=== PATIENT | male | born 1935 | race Caucasian/White ===

== ENCOUNTER 2016-06-29 14:52 | Inpatient (IN) | payer OTHER ==
[~2016-06-29] VITALS: Ht 182.9 cm; Wt 72.0 kg
[~2016-06-29 14:52] MED LIST: AMBIEN10 MG PO; AMOX TR-K CLV1 EAC3 PO; AUGMENTIN875 MG PO; CENTRUM SILV1 TABLE1 PO; COUMADIN,JANTOVE5 MG PO; COUMADIN2.5 MG PO; DIGITEK125 MC2 PO; DIGOXIN250 MCG PO; FISH OIL 1,0001 EAC7 PO; FOLIC ACID0.4 MG PO; FUROSEMIDE40 MG PO; LANOXIN,DIGIT0.25 MG PO; LANOXIN250 MCG PO; LEVAQUIN750 MG PO; LISINOPRIL5 MG PO; LOPRESSOR25 MG PO; Omega III EPA + DHA PO; PROTONIX40 MG PO; TENORMIN50 MG PO; Tenormin PO; VITAMIN D5000 INTUN PO; WARFARIN SODIU2.5 MG PO; WARFARIN SODIUM5 MG PO; ZESTRIL,PRINIVI10 M1 PO; ZOCOR20 MG PO; Zocor PO
[2016-06-29 15:59] LABS: HEMATOCRIT 31.3 % (38.0-50.0); MCH 32.7 PG (29.0-34.0); MCHC 33.5 G/DL (30.0-36.0); MCV 97.5 FL (86-99); MEAN PLAT.VOLUME 9.7 uM^3 (9.0-12.4); PLATELET COUNT 249 K/uL (156-360); RBC DIS.WIDTH-CV 14.7 % (11.8-14.6); RED BLOOD COUNT 3.21 M/uL (4.00-5.50); WHITE BLOOD COUNT 6.6 K/uL (4.1-10.2)
[2016-06-29 16:11] LABS: CHLORIDE 98 mEq/L (99-109); POTASSIUM 5.3 mEq/L (3.7-5.4); SODIUM 130 mEq/L (136-147)
[2016-06-29 16:12] LABS: GLUCOSE 106 mg/dL (70-99)
[2016-06-29 16:14] LABS: ANION GAP 11 MEQ/L (2-14)
[2016-06-29 16:16] LABS: GFR ESTIMATE (CALCULATED) 34 mL/min/
[2016-06-29 16:17] LABS: UREA NITROGEN (BUN) 51 mg/dL (9-23)
[2016-06-29 16:24] LABS: TROP-I INTERPRETATION NEGATIVE; TROPONIN-I 0.08 ng/mL (0.0-0.30)
[2016-06-29] MEDS ORDERED: LOPRESSOR25 MG PO (17:34)
[2016-06-29] MEDS ORDERED: FUROSEMIDE40 MG PO (17:35)
[2016-06-29] MEDS ORDERED: LISINOPRIL2.5 MG PO (17:35)
[2016-06-29] MEDS ORDERED: CENTRUM SILVER1 EAC3 PO (17:36)
[2016-06-29] MEDS ORDERED: PROAIR HFA8.5 GM IH (17:37)
[2016-06-29] MEDS ORDERED: ADVAIR 250/501 DISK IH (17:37)
[2016-06-29 22:49] LABS: PTT 46.3 (25-32)
[2016-06-29 22:55] LABS: INTER. NORMALIZED RATIO 4.6; PROTHROMBIN TIME 49.3 (9.2-11.2)
[2016-06-29 23:20] VITALS: BP 101/65
[2016-06-30 04:00] VITALS: BP 96/60
[2016-06-30 08:02] LABS: INTER. NORMALIZED RATIO 4.2; PROTHROMBIN TIME 44.9 (9.2-11.2)
[2016-06-30 08:09] VITALS: BP 109/60
[2016-06-30 09:59] LABS: HEMATOCRIT 27.7 % (38.0-50.0); MCH 32.5 PG (29.0-34.0); MCHC 34.3 G/DL (30.0-36.0); MCV 94.9 FL (86-99); MEAN PLAT.VOLUME 10.5 uM^3 (9.0-12.4); PLATELET COUNT 236 K/uL (156-360); RBC DIS.WIDTH-CV 14.8 % (11.8-14.6); RBC DIS.WIDTH-SD 51.6 % (39-53); RED BLOOD COUNT 2.92 M/uL (4.00-5.50); WHITE BLOOD COUNT 6.2 K/uL (4.1-10.2)
[2016-06-30 10:11] LABS: ANION GAP 10 MEQ/L (2-14); CHLORIDE 98 MEQ/L (99-109); GFR ESTIMATE (CALCULATED) 34 mL/min/; GLUCOSE 85 mg/dL (70-99); SAMPLE HEMOLYSIS CHECK 0; SAMPLE ICTERIC CHECK 0; SAMPLE LIPEMIA CHECK 0; SODIUM 129 MEQ/L (136-147); UREA NITROGEN (BUN) 54 mg/dL (9-23)
[2016-06-30 12:00] VITALS: BP 96/62
[2016-06-30 15:29] LABS: ADD MIUA? NO; BILIRUBIN NEGATIVE; BLOOD NEGATIVE; COLOR YELLOW ((YELLOW)); GLUCOSE (STRIP) NEGATIVE; KETONES NEGATIVE; LEUKOCYTES NEGATIVE; NITRITE NEGATIVE; PROTEIN (STRIP) NEGATIVE; SPECIFIC GRAVITY 1.009 (1.000-1.030); UROBILINOGEN 0.2 MG/DL (0.2-1.0)
[2016-06-30 16:22] VITALS: BP 101/64
[2016-06-30 20:00] VITALS: BP 107/65
[2016-07-01] VITALS: BP 86/45
[2016-07-01 04:00] VITALS: BP 95/63
[2016-07-01 07:14] LABS: EOSINOPHIL (%) 2.4 % (0-5); EOSINOPHIL COUNT 0.2 K/uL (0-0.3); HEMATOCRIT 28.3 % (38.0-50.0); IMMATURE GRANULOCYTE (%) 0.4 % (0.0-0.7); LYMPHOCYTE COUNT 0.9 K/uL (1.0-2.8); MCH 32.1 PG (29.0-34.0); MCHC 33.9 G/DL (30.0-36.0); MCV 94.6 FL (86-99); MEAN PLAT.VOLUME 10.2 uM^3 (9.0-12.4); MONOCYTE (%) 9.9 % (3-12); MONOCYTE COUNT 0.7 K/uL (0-0.8); NEUTROPHIL (%) 73.4 % (45-76); PLATELET COUNT 259 K/uL (156-360); RBC DIS.WIDTH-CV 14.8 % (11.8-14.6); RED BLOOD COUNT 2.99 M/uL (4.00-5.50); WHITE BLOOD COUNT 6.8 K/uL (4.1-10.2)
[2016-07-01 07:23] LABS: PROTHROMBIN TIME 48.2 (9.2-11.2)
[2016-07-01 07:35] LABS: HEM NON-PRINT 2 NO CLOT; INTER. NORMALIZED RATIO 4.5
[2016-07-01 07:41] LABS: ANION GAP 8 MEQ/L (2-14); CHLORIDE 97 MEQ/L (99-109); GFR ESTIMATE (CALCULATED) 32 mL/min/; GLUCOSE 91 mg/dL (70-99); POTASSIUM 4.8 MEQ/L (3.7-5.4); SAMPLE HEMOLYSIS CHECK 0; SAMPLE ICTERIC CHECK 0; SAMPLE LIPEMIA CHECK 0; SODIUM 128 MEQ/L (136-147); UREA NITROGEN (BUN) 54 mg/dL (9-23)
[2016-07-01 07:50] VITALS: BP 99/67
[2016-07-01 11:55] VITALS: BP 111/72
[2016-07-01 16:00] VITALS: BP 109/69
[2016-07-01 20:00] VITALS: BP 115/67
[2016-07-02] VITALS (12 sets, daily range): BP systolic 86–103; BP diastolic 53–71
[2016-07-02 08:31] LABS: ANION GAP 9 MEQ/L (2-14); CHLORIDE 96 MEQ/L (99-109); GFR ESTIMATE (CALCULATED) 36 mL/min/; GLUCOSE 87 mg/dL (70-99); POTASSIUM 4.9 MEQ/L (3.7-5.4); SAMPLE HEMOLYSIS CHECK 0; SAMPLE ICTERIC CHECK 0; SAMPLE LIPEMIA CHECK 0; SODIUM 128 MEQ/L (136-147); UREA NITROGEN (BUN) 54 mg/dL (9-23)
[2016-07-02 09:23] LABS: INTER. NORMALIZED RATIO 4.7; PROTHROMBIN TIME 49.9 (9.2-11.2)
[2016-07-02 15:58] LABS: INTER. NORMALIZED RATIO 2.8; PROTHROMBIN TIME 29.7 (9.2-11.2)
[2016-07-03] VITALS (10 sets, daily range): BP systolic 104–134; BP diastolic 62–82
[2016-07-03 06:59] LABS: INTER. NORMALIZED RATIO 2.3; PROTHROMBIN TIME 23.7 (9.2-11.2)
[2016-07-03 12:17] LABS: INTER. NORMALIZED RATIO 2.3; PROTHROMBIN TIME 23.5 (9.2-11.2)
[2016-07-04] VITALS (13 sets, daily range): BP systolic 103–119; BP diastolic 58–77
[2016-07-04 06:16] LABS: INTER. NORMALIZED RATIO 2.3
[2016-07-04 13:38] LABS: INTER. NORMALIZED RATIO 2.1; PROTHROMBIN TIME 21.6 (9.2-11.2)
[2016-07-05] VITALS: BP 119/68
[2016-07-05 04:00] VITALS: BP 112/62
[2016-07-05 06:47] LABS: INTER. NORMALIZED RATIO 1.9; PROTHROMBIN TIME 20.2 (9.2-11.2)
[2016-07-05 07:21] LABS: ANION GAP 22 MEQ/L (2-14); CHLORIDE 92 MEQ/L (99-109); GFR ESTIMATE (CALCULATED) 41 mL/min/; GLUCOSE 102 mg/dL (70-99); POTASSIUM 4.3 MEQ/L (3.7-5.4); SAMPLE HEMOLYSIS CHECK 0; SAMPLE ICTERIC CHECK 0; SAMPLE LIPEMIA CHECK 0; UREA NITROGEN (BUN) 57 mg/dL (9-23)
[2016-07-05 07:24] LABS: SODIUM 137 MEQ/L (136-147)
[2016-07-05 07:29] VITALS: BP 113/68
[2016-07-05 11:47] VITALS: BP 118/77
[2016-07-05 19:34] VITALS: BP 99/67
[2016-07-05 23:45] VITALS: BP 110/70
[2016-07-06 04:09] VITALS: BP 104/58
[2016-07-06 05:33] LABS: INTER. NORMALIZED RATIO 2.1; PROTHROMBIN TIME 22.2 (9.2-11.2)
[2016-07-06 06:05] LABS: ANION GAP 9 MEQ/L (2-14); CHLORIDE 94 MEQ/L (99-109); GFR ESTIMATE (CALCULATED) 41 mL/min/; GLUCOSE 100 mg/dL (70-99); POTASSIUM 4.4 MEQ/L (3.7-5.4); SAMPLE HEMOLYSIS CHECK 0; SAMPLE ICTERIC CHECK 0; SAMPLE LIPEMIA CHECK 0; SODIUM 130 MEQ/L (136-147); UREA NITROGEN (BUN) 60 mg/dL (9-23)
[2016-07-06 07:24] VITALS: BP 99/58
[2016-07-06 12:00] VITALS: BP 108/64
[2016-07-06 15:58] VITALS: BP 109/73
[2016-07-06 20:07] VITALS: BP 107/69
[2016-07-07 00:33] VITALS: BP 100/65
[2016-07-07 04:03] VITALS: BP 106/61
[2016-07-07 07:22] LABS: EOSINOPHIL (%) 3.5 % (0-5); EOSINOPHIL COUNT 0.3 K/uL (0-0.3); IMMATURE GRANULOCYTE (%) 0.3 % (0.0-0.7); LYMPHOCYTE COUNT 0.8 K/uL (1.0-2.8); MCH 32.3 PG (29.0-34.0); MCHC 33.9 G/DL (30.0-36.0); MCV 95.2 FL (86-99); MEAN PLAT.VOLUME 9.9 uM^3 (9.0-12.4); MONOCYTE (%) 10.4 % (3-12); MONOCYTE COUNT 0.8 K/uL (0-0.8); NEUTROPHIL COUNT 5.3 K/uL (1.8-6.4); PLATELET COUNT 319 K/uL (156-360); RBC DIS.WIDTH-CV 14.6 % (11.8-14.6); RBC DIS.WIDTH-SD 50.8 % (39-53); RED BLOOD COUNT 2.94 M/uL (4.00-5.50); WHITE BLOOD COUNT 7.2 K/uL (4.1-10.2)
[2016-07-07 07:34] VITALS: BP 102/62
[2016-07-07 07:37] LABS: ANION GAP 10 MEQ/L (2-14); CHLORIDE 93 MEQ/L (99-109); GFR ESTIMATE (CALCULATED) 41 mL/min/; GLUCOSE 91 mg/dL (70-99); POTASSIUM 4.6 MEQ/L (3.7-5.4); SAMPLE HEMOLYSIS CHECK 0; SAMPLE ICTERIC CHECK 0; SAMPLE LIPEMIA CHECK 0; SODIUM 130 MEQ/L (136-147); UREA NITROGEN (BUN) 60 mg/dL (9-23)
[2016-07-07 07:48] LABS: INTER. NORMALIZED RATIO 2.2; PROTHROMBIN TIME 22.7 (9.2-11.2)
[2016-07-07 11:30] VITALS: BP 108/59
[2016-07-07 15:14] VITALS: BP 146/80
[2016-07-07 20:16] VITALS: BP 106/67
[2016-07-08] VITALS (7 sets, daily range): BP systolic 102–118; BP diastolic 55–69
[2016-07-08 06:49] LABS: INTER. NORMALIZED RATIO 2.5; PROTHROMBIN TIME 26.1 (9.2-11.2)
[2016-07-09] VITALS (8 sets, daily range): BP systolic 93–123; BP diastolic 56–76
[2016-07-09 07:01] LABS: EOSINOPHIL (%) 3.1 % (0-5); EOSINOPHIL COUNT 0.2 K/uL (0-0.3); HEMATOCRIT 27.5 % (38.0-50.0); IMMATURE GRANULOCYTE (%) 0.4 % (0.0-0.7); MCH 32.7 PG (29.0-34.0); MCHC 33.8 G/DL (30.0-36.0); MCV 96.8 FL (86-99); MEAN PLAT.VOLUME 9.9 uM^3 (9.0-12.4); MONOCYTE (%) 9.5 % (3-12); MONOCYTE COUNT 0.7 K/uL (0-0.8); NEUTROPHIL (%) 73.2 % (45-76); NEUTROPHIL COUNT 5.2 K/uL (1.8-6.4); PLATELET COUNT 303 K/uL (156-360); RBC DIS.WIDTH-CV 14.5 % (11.8-14.6); RBC DIS.WIDTH-SD 51.4 % (39-53); RED BLOOD COUNT 2.84 M/uL (4.00-5.50)
[2016-07-09 07:06] LABS: INTER. NORMALIZED RATIO 2.7; PROTHROMBIN TIME 28.1 (9.2-11.2)
[2016-07-09 07:21] LABS: ANION GAP 9 MEQ/L (2-14); CHLORIDE 93 MEQ/L (99-109); GFR ESTIMATE (CALCULATED) 39 mL/min/; GLUCOSE 86 mg/dL (70-99); POTASSIUM 4.4 MEQ/L (3.7-5.4); SAMPLE HEMOLYSIS CHECK 0; SAMPLE ICTERIC CHECK 0; SAMPLE LIPEMIA CHECK 0; SODIUM 131 MEQ/L (136-147); UREA NITROGEN (BUN) 61 mg/dL (9-23)
[2016-07-10 05:00] VITALS: BP 105/65
[2016-07-10 07:31] VITALS: BP 104/67
[2016-07-10 07:49] LABS: INTER. NORMALIZED RATIO 2.9; PROTHROMBIN TIME 30.7 (9.2-11.2)
[2016-07-10 11:23] VITALS: BP 107/71
[2016-07-10 16:00] VITALS: BP 118/78
[2016-07-10 20:00] VITALS: BP 109/72
[2016-07-11] VITALS: BP 101/59
[2016-07-11 03:45] VITALS: BP 101/60
[2016-07-11 07:06] LABS: INTER. NORMALIZED RATIO 3.3; PROTHROMBIN TIME 34.9 (9.2-11.2)
[2016-07-11 08:00] VITALS: BP 96/62
[2016-07-11 08:57] VITALS: BP 119/62
[2016-07-11 11:59] VITALS: BP 126/84
[2016-07-11 16:00] VITALS: BP 116/72
[2016-07-12] VITALS: BP 98/69
[2016-07-12 04:00] VITALS: BP 125/78
[2016-07-12 06:57] LABS: EOSINOPHIL (%) 2.5 % (0-5); EOSINOPHIL COUNT 0.2 K/uL (0-0.3); HEMATOCRIT 28.8 % (38.0-50.0); IMMATURE GRANULOCYTE (%) 0.5 % (0.0-0.7); MCH 32.4 PG (29.0-34.0); MCHC 33.7 G/DL (30.0-36.0); MCV 96.3 FL (86-99); MEAN PLAT.VOLUME 9.7 uM^3 (9.0-12.4); MONOCYTE (%) 11.2 % (3-12); MONOCYTE COUNT 0.9 K/uL (0-0.8); NEUTROPHIL (%) 72.3 % (45-76); NEUTROPHIL COUNT 5.5 K/uL (1.8-6.4); PLATELET COUNT 285 K/uL (156-360); RBC DIS.WIDTH-CV 14.4 % (11.8-14.6); RBC DIS.WIDTH-SD 50.9 % (39-53); RED BLOOD COUNT 2.99 M/uL (4.00-5.50); WHITE BLOOD COUNT 7.7 K/uL (4.1-10.2)
[2016-07-12 07:11] LABS: INTER. NORMALIZED RATIO 3.6; PROTHROMBIN TIME 37.8 (9.2-11.2)
[2016-07-12 07:36] LABS: ANION GAP 10 MEQ/L (2-14); CHLORIDE 91 MEQ/L (99-109); GFR ESTIMATE (CALCULATED) 41 mL/min/; GLUCOSE 101 mg/dL (70-99); POTASSIUM 4.4 MEQ/L (3.7-5.4); SAMPLE HEMOLYSIS CHECK 0; SAMPLE ICTERIC CHECK 0; SAMPLE LIPEMIA CHECK 0; SODIUM 131 MEQ/L (136-147); UREA NITROGEN (BUN) 59 mg/dL (9-23)
[2016-07-12 07:40] VITALS: BP 105/67
[2016-07-12 11:31] VITALS: BP 104/72
[2016-07-12] MEDS ORDERED: TYLENOL REGULA325 MG PO (14:16)
[2016-07-12] MEDS ORDERED: SPIRONOLACTONE25 MG PO (14:25)
[2016-07-12] MEDS ORDERED: DIGOXIN250 MCG PO (14:25)
[2016-07-12] MEDS ORDERED: LASIX40 MG PO ×2 (14:25→14:40)
[2016-07-12] MEDS ORDERED: LOVENOX80 MG/0.8 SC (14:27)
[2016-07-12 15:19] VITALS: BP 112/69
[2016-07-20] MEDS ORDERED: DULERA 100 MCG/13 GM IH (12:49)
[2016-07-20] MEDS ORDERED: ATORVASTATIN CA10 MG PO (12:49)
[2016-07-20] MEDS ORDERED: OMEPRAZOLE40 M1 PO (12:50)
[2016-07-20] MEDS ORDERED: ZOLPIDEM TARTRAT5 MG PO (12:51)
== END 2016-07-12 16:34 | DRG 187 ==
LOC: EME 14:52 → 5SOUTH 21:24 → EDOF 21:24 → 5SOUTH 23:16
PROVIDERS: Hospitalist; Internal Medicine; Internal Medicine Nephrology; Internal Medicine Pulmonary Disease; Nurse Practitioner Adult Health; Nurse Practitioner Family; Thoracic Surgery (Cardiothoracic Vascular Surgery)
PROC: 30233K1 Transfusion of Nonautologous Frozen Plasma into Peripheral Vein, Percutaneous Approach (ICD-10-PCS; principal; 2016-07-02)
PROC: 0W993ZZ Drainage of Right Pleural Cavity, Percutaneous Approach (ICD-10-PCS; 2016-07-05)
DX: J90 Pleural effusion, not elsewhere classified (principal); J98.11 Atelectasis; E22.2 Syndrome of inappropriate secretion of antidiuretic hormone; I50.22 Chronic systolic (congestive) heart failure; N17.9 Acute kidney failure, unspecified; I42.0 Dilated cardiomyopathy; K21.9 Gastro-esophageal reflux disease without esophagitis; E87.70 Fluid overload, unspecified; R60.9 Edema, unspecified; N28.1 Cyst of kidney, acquired; I48.2 Chronic atrial fibrillation; I49.5 Sick sinus syndrome; F32.9 Major depressive disorder, single episode, unspecified; D64.9 Anemia, unspecified; N40.0 Benign prostatic hyperplasia without lower urinary tract symptoms; I12.9 Hypertensive chronic kidney disease with stage 1 through stage 4 chronic kidney disease, or unspecified chronic kidney disease; E78.5 Hyperlipidemia, unspecified; I51.7 Cardiomegaly; R06.02 Shortness of breath; N18.3 Chronic kidney disease, stage 3 (moderate); Z95.0 Presence of cardiac pacemaker; Z85.038 Personal history of other malignant neoplasm of large intestine; Z95.2 Presence of prosthetic heart valve; Z88.2 Allergy status to sulfonamides; Z79.01 Long term (current) use of anticoagulants
CPT/HCPCS: 71010; 71020; 71030; 71250; 76770; 80048; 80162; 81003; 82533 91; 83880; 83930; 83935; 84300; 84443; 84484; 85025; 85027; 85610; 85730; 86850; 86900; 86901; 93005; 94640; 94640 76; 94760; 94799; 97530 GO; 97530 GP; 99281; 99285; J1940; P9017

== ENCOUNTER 2016-07-21 12:06 | Day surgery (SDC) | payer OTHER ==
[~2016-07-21] VITALS: Ht 182.9 cm; Wt 68.5 kg
[~2016-07-21 12:06] MED LIST changes: +ADVAIR 250/501 DISK IH; +ATORVASTATIN CA10 MG PO; +CENTRUM SILVER1 EAC3 PO; +DULERA 100 MCG/13 GM IH; +LASIX40 MG PO; +LISINOPRIL2.5 MG PO; +LOVENOX80 MG/0.8 SC; +OMEPRAZOLE40 M1 PO; +PROAIR HFA8.5 GM IH; +SPIRONOLACTONE25 MG PO; +TYLENOL REGULA325 MG PO; +ZOLPIDEM TARTRAT5 MG PO
[2016-07-21 12:47] VITALS: BP 109/69
[2016-07-21] MEDS ORDERED: COUMADIN1 MG PO (12:47)
[2016-07-21 13:18] LABS: EOSINOPHIL (%) 2.2 % (0-5); EOSINOPHIL COUNT 0.2 K/uL (0-0.3); HEMATOCRIT 29.3 % (38.0-50.0); IMMATURE GRANULOCYTE (%) 0.1 % (0.0-0.7); MCH 32.3 PG (29.0-34.0); MCHC 34.1 G/DL (30.0-36.0); MCV 94.5 FL (86-99); MEAN PLAT.VOLUME 9.6 uM^3 (9.0-12.4); MONOCYTE (%) 7.5 % (3-12); MONOCYTE COUNT 0.5 K/uL (0-0.8); NEUTROPHIL (%) 75.6 % (45-76); NEUTROPHIL COUNT 5.5 K/uL (1.8-6.4); PLATELET COUNT 288 K/uL (156-360); RBC DIS.WIDTH-CV 14.9 % (11.8-14.6); WHITE BLOOD COUNT 7.2 K/uL (4.1-10.2)
[2016-07-21 13:23] LABS: CHLORIDE 96 mEq/L (99-109); POTASSIUM 4.4 mEq/L (3.7-5.4); SODIUM 133 mEq/L (136-147)
[2016-07-21 13:25] LABS: GLUCOSE 90 mg/dL (70-99)
[2016-07-21 13:26] LABS: ANION GAP 13 MEQ/L (2-14)
[2016-07-21 13:27] LABS: TOTAL BILIRUBIN 1.7 mg/dL (0.0-1.0)
[2016-07-21 13:28] LABS: ALKALINE PHOSPHATASE 247 IU/L (3-129)
[2016-07-21 13:29] LABS: GFR ESTIMATE (CALCULATED) 44 mL/min/
[2016-07-21 13:30] LABS: UREA NITROGEN (BUN) 41 mg/dL (9-23)
[2016-07-21 13:52] LABS: METH RESISTANT S AUREUS PCR NEGATIVE (NEGATIVE); PROBE CHECK PASS; SPECIMEN PROCESSING CONTROL PASS
[2016-07-21 16:40] VITALS: BP 113/65
[2016-07-21 17:50] VITALS: BP 101/68
== END 2016-07-21 18:15 ==
LOC: SDC 12:06
PROVIDERS: Thoracic Surgery (Cardiothoracic Vascular Surgery)
PROC: 0W9930Z Drainage of Right Pleural Cavity with Drainage Device, Percutaneous Approach (ICD-10-PCS; principal; 2016-07-21)
DX: J90 Pleural effusion, not elsewhere classified (principal); I10 Essential (primary) hypertension; Z95.0 Presence of cardiac pacemaker; Z85.038 Personal history of other malignant neoplasm of large intestine; Z95.2 Presence of prosthetic heart valve; R06.02 Shortness of breath
CPT/HCPCS: 71010; 80053; 85025; 85610; 87641; C1729; J0690; J1650; J2250; J3010

== ENCOUNTER 2016-08-19 18:33 | Inpatient (IN) | payer OTHER ==
[~2016-08-19] VITALS: Ht 182.9 cm; Wt 67.4 kg
[~2016-08-19 18:33] MED LIST changes: +COUMADIN1 MG PO
[2016-08-19 20:13] LABS: HEMATOCRIT 30.2 % (38.0-50.0); MCH 31.5 PG (29.0-34.0); MCHC 33.4 G/DL (30.0-36.0); MCV 94.1 FL (86-99); MEAN PLAT.VOLUME 9.9 uM^3 (9.0-12.4); PLATELET COUNT 270 K/uL (156-360); RBC DIS.WIDTH-CV 16.3 % (11.8-14.6); RBC DIS.WIDTH-SD 53.5 % (39-53); RED BLOOD COUNT 3.21 M/uL (4.00-5.50); WHITE BLOOD COUNT 7.1 K/uL (4.1-10.2)
[2016-08-19 20:31] LABS: CHLORIDE 100 mEq/L (99-109); SODIUM 132 mEq/L (136-147)
[2016-08-19 20:34] LABS: ANION GAP 10 MEQ/L (2-14)
[2016-08-19 20:36] LABS: TROP-I INTERPRETATION NEGATIVE
[2016-08-19 20:37] LABS: GFR ESTIMATE (CALCULATED) 26 mL/min/
[2016-08-19 20:38] LABS: UREA NITROGEN (BUN) 65 mg/dL (9-23)
[2016-08-19 20:48] LABS: GLUCOSE 88 mg/dL (70-99); POTASSIUM 6.4 mEq/L (3.7-5.4)
[2016-08-20 01:32] LABS: POTASSIUM 5.4 mEq/L (3.7-5.4)
[2016-08-20 01:49] LABS: TROP-I INTERPRETATION NEGATIVE
[2016-08-20 03:23] LABS: ADD MIUA? YES; BILIRUBIN NEGATIVE; BLOOD NEGATIVE; COLOR YELLOW ((YELLOW)); GLUCOSE (STRIP) NEGATIVE; KETONES NEGATIVE; LEUKOCYTES NEGATIVE; NITRITE NEGATIVE; PROTEIN (STRIP) 30; SPECIFIC GRAVITY 1.013 (1.000-1.030); UROBILINOGEN 0.2 MG/DL (0.2-1.0)
[2016-08-20 03:40] LABS: BACTERIA NONE SEEN /HPF; EPITHELIAL CELLS RARE /HPF; MUCUS TRACE /LPF; RED BLOOD CELLS NONE SEEN /HPF (0-5); UCUL ADDED? NO; WHITE BLOOD CELLS 0-5 /HPF (0-5)
[2016-08-20 06:57] LABS: INTER. NORMALIZED RATIO 4.2; PROTHROMBIN TIME 45.1 (9.2-11.2)
[2016-08-20 07:47] LABS: INTACT PARATHYROID HORMONE 99 pg/mL (10-69)
[2016-08-20 15:38] VITALS: BP 112/59
[2016-08-20] MEDS ORDERED: DULERA 100 MCG/13 GM IH (16:24)
[2016-08-20] MEDS ORDERED: ZESTRIL2.5 MG PO (16:25)
[2016-08-20] MEDS ORDERED: DIGITEK250 MC2 PO (16:25)
[2016-08-20] MEDS ORDERED: ALDACTONE25 MG PO (16:25)
[2016-08-20] MEDS ORDERED: OMEPRAZOLE40 M1 PO (16:26)
[2016-08-20] MEDS ORDERED: LOPRESSOR25 MG PO (16:26)
[2016-08-20] MEDS ORDERED: LIPITOR10 MG PO (16:26)
[2016-08-20] MEDS ORDERED: NEURONTIN100 MG PO (16:27)
[2016-08-20] MEDS ORDERED: AMBIEN5 MG PO (16:27)
[2016-08-20] MEDS ORDERED: LASIX40 MG PO (16:27)
[2016-08-20] MEDS ORDERED: METOLAZONE2.5 MG PO (16:28)
[2016-08-20] MEDS ORDERED: OXAYDO5 MG PO (16:28)
[2016-08-20] MEDS ORDERED: MULTIVITAMIN1 EAC2 PO (16:29)
[2016-08-20] MEDS ORDERED: FOLIC ACID0.8 MG PO (16:29)
[2016-08-20] MEDS ORDERED: ACETAMINOPHEN325 M3 PO (16:29)
[2016-08-20 21:13] VITALS: BP 109/63
[2016-08-20 23:18] VITALS: BP 107/62
[2016-08-21 04:20] VITALS: BP 98/60
[2016-08-21 06:38] LABS: HEMATOCRIT 26.4 % (38.0-50.0); MCH 31.1 PG (29.0-34.0); MCHC 33.3 G/DL (30.0-36.0); MCV 93.3 FL (86-99); MEAN PLAT.VOLUME 9.6 uM^3 (9.0-12.4); PLATELET COUNT 210 K/uL (156-360); RBC DIS.WIDTH-CV 16.4 % (11.8-14.6); RBC DIS.WIDTH-SD 56.4 % (39-53); RED BLOOD COUNT 2.83 M/uL (4.00-5.50); WHITE BLOOD COUNT 5.6 K/uL (4.1-10.2)
[2016-08-21 06:48] LABS: INTER. NORMALIZED RATIO 3.3; PROTHROMBIN TIME 35.4 (9.2-11.2); PTT 42.5 (25-32)
[2016-08-21 07:00] LABS: ANION GAP 8 MEQ/L (2-14); CHLORIDE 99 MEQ/L (99-109); GFR ESTIMATE (CALCULATED) 34 mL/min/; GLUCOSE 80 mg/dL (70-99); POTASSIUM 4.5 MEQ/L (3.7-5.4); SAMPLE HEMOLYSIS CHECK 0; SAMPLE ICTERIC CHECK 0; SAMPLE LIPEMIA CHECK 0; SODIUM 132 MEQ/L (136-147); UREA NITROGEN (BUN) 56 mg/dL (9-23)
[2016-08-21 09:09] VITALS: BP 115/61
[2016-08-21 11:50] VITALS: BP 100/61
[2016-08-21 16:28] VITALS: BP 122/69
[2016-08-21 19:41] VITALS: BP 124/67
[2016-08-21 23:21] VITALS: BP 106/64
[2016-08-22 03:00] VITALS: BP 97/56
[2016-08-22 07:01] LABS: MCH 31.6 PG (29.0-34.0); MCHC 33.2 G/DL (30.0-36.0); MCV 95.2 FL (86-99); MEAN PLAT.VOLUME 10.1 uM^3 (9.0-12.4); PLATELET COUNT 217 K/uL (156-360); RBC DIS.WIDTH-CV 16.4 % (11.8-14.6); RBC DIS.WIDTH-SD 57.2 % (39-53); RED BLOOD COUNT 2.94 M/uL (4.00-5.50); WHITE BLOOD COUNT 6.3 K/uL (4.1-10.2)
[2016-08-22 07:09] LABS: BASOPHIL COUNT 0.1 K/uL (0-0.1); EOSINOPHIL COUNT 0.3 K/uL (0-0.3); IMMATURE GRANULOCYTE (%) 0.3 % (0.0-0.7); LYMPHOCYTE COUNT 0.4 K/uL (1.0-2.8); MONOCYTE COUNT 0.9 K/uL (0-0.8); NEUTROPHIL (%) 73.3 % (45-76); NEUTROPHIL COUNT 4.6 K/uL (1.8-6.4)
[2016-08-22 07:21] LABS: INTER. NORMALIZED RATIO 2.8; PROTHROMBIN TIME 29.3 (9.2-11.2)
[2016-08-22 07:31] LABS: ANION GAP 11 MEQ/L (2-14); CHLORIDE 100 MEQ/L (99-109); GFR ESTIMATE (CALCULATED) 39 mL/min/; GLUCOSE 83 mg/dL (70-99); POTASSIUM 4.4 MEQ/L (3.7-5.4); SAMPLE HEMOLYSIS CHECK 0; SAMPLE ICTERIC CHECK 0; SAMPLE LIPEMIA CHECK 0; SODIUM 133 MEQ/L (136-147); UREA NITROGEN (BUN) 49 mg/dL (9-23)
[2016-08-22 10:08] VITALS: BP 141/67
[2016-08-22 12:00] VITALS: BP 111/61
[2016-08-22 16:45] VITALS: BP 106/73
[2016-08-22 19:00] VITALS: BP 99/63
[2016-08-22 23:11] VITALS: BP 113/68
[2016-08-23 04:43] VITALS: BP 106/62
[2016-08-23 06:52] LABS: HEMATOCRIT 28.6 % (38.0-50.0); MCH 31.2 PG (29.0-34.0); MCHC 32.5 G/DL (30.0-36.0); MEAN PLAT.VOLUME 9.7 uM^3 (9.0-12.4); PLATELET COUNT 203 K/uL (156-360); RBC DIS.WIDTH-CV 16.3 % (11.8-14.6); RBC DIS.WIDTH-SD 56.9 % (39-53); RED BLOOD COUNT 2.98 M/uL (4.00-5.50); WHITE BLOOD COUNT 6.7 K/uL (4.1-10.2)
[2016-08-23 07:09] LABS: BASOPHIL COUNT 0.1 K/uL (0-0.1); EOSINOPHIL (%) 5.1 % (0-5); EOSINOPHIL COUNT 0.3 K/uL (0-0.3); IMMATURE GRANULOCYTE (%) 0.3 % (0.0-0.7); LYMPHOCYTE COUNT 0.5 K/uL (1.0-2.8); MONOCYTE (%) 14.6 % (3-12); NEUTROPHIL (%) 72.3 % (45-76); NEUTROPHIL COUNT 4.9 K/uL (1.8-6.4)
[2016-08-23 07:11] LABS: PROTHROMBIN TIME 31.1 (9.2-11.2)
[2016-08-23 07:19] LABS: ALKALINE PHOSPHATASE 184 IU/L (3-129); ANION GAP 11 MEQ/L (2-14); CHLORIDE 100 MEQ/L (99-109); GFR ESTIMATE (CALCULATED) 36 mL/min/; GLUCOSE 87 mg/dL (70-99); POTASSIUM 4.5 MEQ/L (3.7-5.4); SAMPLE HEMOLYSIS CHECK 0; SAMPLE ICTERIC CHECK 0; SAMPLE LIPEMIA CHECK 0; SODIUM 134 MEQ/L (136-147); TOTAL BILIRUBIN 1.3 MG/DL (0.0-1.0); UREA NITROGEN (BUN) 49 mg/dL (9-23); URIC ACID 9.3 mg/dL (3.1-9.2)
[2016-08-23 07:42] VITALS: BP 103/62
[2016-08-23 11:52] VITALS: BP 112/67
[2016-08-23 15:17] VITALS: BP 112/79
[2016-08-23 15:34] LABS: DIRECT BILIRUBIN 0.5 mg/dL (0.0-0.3); TOTAL BILIRUBIN 1.3 MG/DL (0.0-1.0)
[2016-08-23 15:40] LABS: ALKALINE PHOSPHATASE 199 IU/L (3-129); LIPASE 37 U/L (1.0-51.0)
[2016-08-23 19:15] VITALS: BP 108/69
[2016-08-23 23:10] VITALS: BP 109/68
[2016-08-24 04:50] VITALS: BP 104/68
[2016-08-24 07:35] LABS: HEMATOCRIT 28.3 % (38.0-50.0); MCH 30.5 PG (29.0-34.0); MCHC 32.2 G/DL (30.0-36.0); MEAN PLAT.VOLUME 9.4 uM^3 (9.0-12.4); PLATELET COUNT 209 K/uL (156-360); RBC DIS.WIDTH-CV 16.2 % (11.8-14.6); RBC DIS.WIDTH-SD 55.9 % (39-53); RED BLOOD COUNT 2.98 M/uL (4.00-5.50)
[2016-08-24 07:47] LABS: BASOPHIL COUNT 0.1 K/uL (0-0.1); EOSINOPHIL (%) 4.5 % (0-5); EOSINOPHIL COUNT 0.3 K/uL (0-0.3); IMMATURE GRANULOCYTE (%) 0.2 % (0.0-0.7); LYMPHOCYTE COUNT 0.3 K/uL (1.0-2.8); MONOCYTE (%) 15.6 % (3-12); MONOCYTE COUNT 0.9 K/uL (0-0.8); NEUTROPHIL (%) 73.1 % (45-76); NEUTROPHIL COUNT 4.4 K/uL (1.8-6.4)
[2016-08-24 07:47] LABS: INTER. NORMALIZED RATIO 3.2; PROTHROMBIN TIME 33.8 (9.2-11.2)
[2016-08-24 08:03] LABS: ANION GAP 8 MEQ/L (2-14); CHLORIDE 98 MEQ/L (99-109); GFR ESTIMATE (CALCULATED) 36 mL/min/; GLUCOSE 80 mg/dL (70-99); POTASSIUM 4.3 MEQ/L (3.7-5.4); SAMPLE HEMOLYSIS CHECK 0; SAMPLE ICTERIC CHECK 0; SAMPLE LIPEMIA CHECK 0; SODIUM 131 MEQ/L (136-147); UREA NITROGEN (BUN) 50 mg/dL (9-23)
[2016-08-24 08:15] VITALS: BP 104/64
[2016-08-24 12:38] VITALS: BP 116/66
[2016-08-24 16:05] VITALS: BP 114/66
[2016-08-24 20:02] VITALS: BP 109/73
[2016-08-24 23:56] VITALS: BP 127/69
[2016-08-25 05:06] VITALS: BP 111/64
[2016-08-25 05:42] LABS: HEMATOCRIT 29.2 % (38.0-50.0); MCH 30.6 PG (29.0-34.0); MCHC 32.2 G/DL (30.0-36.0); MCV 95.1 FL (86-99); MEAN PLAT.VOLUME 10.1 uM^3 (9.0-12.4); PLATELET COUNT 235 K/uL (156-360); RBC DIS.WIDTH-CV 16.6 % (11.8-14.6); RBC DIS.WIDTH-SD 56.6 % (39-53); RED BLOOD COUNT 3.07 M/uL (4.00-5.50); WHITE BLOOD COUNT 6.5 K/uL (4.1-10.2)
[2016-08-25 05:45] LABS: INTER. NORMALIZED RATIO 3.6; PROTHROMBIN TIME 37.8 (9.2-11.2)
[2016-08-25 06:18] LABS: ANION GAP 12 MEQ/L (2-14); CHLORIDE 98 MEQ/L (99-109); GFR ESTIMATE (CALCULATED) 39 mL/min/; GLUCOSE 87 mg/dL (70-99); POTASSIUM 4.3 MEQ/L (3.7-5.4); SAMPLE HEMOLYSIS CHECK 0; SAMPLE ICTERIC CHECK 0; SAMPLE LIPEMIA CHECK 0; SODIUM 132 MEQ/L (136-147); UREA NITROGEN (BUN) 50 mg/dL (9-23)
[2016-08-25 09:36] VITALS: BP 110/60
[2016-08-25 11:08] VITALS: BP 110/64
[2016-08-25 16:20] VITALS: BP 108/73
[2016-08-25 18:32] VITALS: BP 96/66
[2016-08-25 23:45] VITALS: BP 96/51
[2016-08-26 03:49] VITALS: BP 100/56
[2016-08-26 07:13] LABS: HEMATOCRIT 28.7 % (38.0-50.0); MCH 33.3 PG (29.0-34.0); MCHC 35.2 G/DL (30.0-36.0); MCV 94.7 FL (86-99); MEAN PLAT.VOLUME 10.1 uM^3 (9.0-12.4); PLATELET COUNT 211 K/uL (156-360); RBC DIS.WIDTH-CV 16.5 % (11.8-14.6); RBC DIS.WIDTH-SD 55.5 % (39-53); RED BLOOD COUNT 3.03 M/uL (4.00-5.50); WHITE BLOOD COUNT 7.5 K/uL (4.1-10.2)
[2016-08-26 07:18] VITALS: BP 100/52
[2016-08-26 07:24] LABS: INTER. NORMALIZED RATIO 4.4; PROTHROMBIN TIME 46.8 (9.2-11.2)
[2016-08-26 07:34] LABS: ANION GAP 12 MEQ/L (2-14); CHLORIDE 96 MEQ/L (99-109); GFR ESTIMATE (CALCULATED) 36 mL/min/; GLUCOSE 86 mg/dL (70-99); POTASSIUM 4.4 MEQ/L (3.7-5.4); SAMPLE HEMOLYSIS CHECK 0; SAMPLE ICTERIC CHECK 0; SAMPLE LIPEMIA CHECK 0; SODIUM 131 MEQ/L (136-147); UREA NITROGEN (BUN) 51 mg/dL (9-23)
[2016-08-26 11:04] VITALS: BP 120/62
[2016-08-26 16:13] VITALS: BP 114/61
[2016-08-26 19:00] VITALS: BP 121/73
[2016-08-26 23:45] VITALS: BP 113/68
[2016-08-27 04:50] VITALS: BP 115/74
[2016-08-27 06:50] LABS: HEMATOCRIT 28.8 % (38.0-50.0); MCH 31.3 PG (29.0-34.0); MCHC 33.3 G/DL (30.0-36.0); MCV 93.8 FL (86-99); MEAN PLAT.VOLUME 10.3 uM^3 (9.0-12.4); PLATELET COUNT 210 K/uL (156-360); RBC DIS.WIDTH-CV 16.7 % (11.8-14.6); RED BLOOD COUNT 3.07 M/uL (4.00-5.50); WHITE BLOOD COUNT 7.2 K/uL (4.1-10.2)
[2016-08-27 06:55] LABS: BASOPHIL COUNT 0.1 K/uL (0-0.1); EOSINOPHIL (%) 4.2 % (0-5); EOSINOPHIL COUNT 0.3 K/uL (0-0.3); IMMATURE GRANULOCYTE (%) 0.3 % (0.0-0.7); LYMPHOCYTE COUNT 0.9 K/uL (1.0-2.8); MONOCYTE (%) 8.5 % (3-12); MONOCYTE COUNT 0.6 K/uL (0-0.8); NEUTROPHIL (%) 73.9 % (45-76); NEUTROPHIL COUNT 5.3 K/uL (1.8-6.4)
[2016-08-27 07:05] LABS: INTER. NORMALIZED RATIO 4.8
[2016-08-27 07:18] LABS: ANION GAP 9 MEQ/L (2-14); CHLORIDE 97 MEQ/L (99-109); GFR ESTIMATE (CALCULATED) 41 mL/min/; GLUCOSE 87 mg/dL (70-99); POTASSIUM 4.3 MEQ/L (3.7-5.4); SAMPLE HEMOLYSIS CHECK 0; SAMPLE ICTERIC CHECK 0; SAMPLE LIPEMIA CHECK 0; SODIUM 133 MEQ/L (136-147); UREA NITROGEN (BUN) 49 mg/dL (9-23)
[2016-08-27 08:00] VITALS: BP 111/76
[2016-08-27 15:00] VITALS: BP 112/54
[2016-08-27 19:25] VITALS: BP 109/71
[2016-08-27 23:45] VITALS: BP 114/65
[2016-08-28 04:17] VITALS: BP 107/57
[2016-08-28 06:47] LABS: HEMATOCRIT 29.1 % (38.0-50.0); MCH 30.6 PG (29.0-34.0); MCHC 32.3 G/DL (30.0-36.0); MCV 94.8 FL (86-99); MEAN PLAT.VOLUME 10.2 uM^3 (9.0-12.4); PLATELET COUNT 214 K/uL (156-360); RBC DIS.WIDTH-CV 16.8 % (11.8-14.6); RBC DIS.WIDTH-SD 56.8 % (39-53); RED BLOOD COUNT 3.07 M/uL (4.00-5.50); WHITE BLOOD COUNT 7.8 K/uL (4.1-10.2)
[2016-08-28 06:57] LABS: PROTHROMBIN TIME 49.7 (9.2-11.2)
[2016-08-28 06:59] LABS: INTER. NORMALIZED RATIO 4.7
[2016-08-28 07:10] LABS: ANION GAP 5 MEQ/L (2-14); CHLORIDE 96 MEQ/L (99-109); GFR ESTIMATE (CALCULATED) 41 mL/min/; GLUCOSE 96 mg/dL (70-99); MAGNESIUM 1.8 mg/dl (1.3-2.7); POTASSIUM 4.4 MEQ/L (3.7-5.4); SAMPLE HEMOLYSIS CHECK 0; SAMPLE ICTERIC CHECK 0; SAMPLE LIPEMIA CHECK 0; SODIUM 132 MEQ/L (136-147); UREA NITROGEN (BUN) 48 mg/dL (9-23)
[2016-08-28 09:01] VITALS: BP 112/71
[2016-08-28 10:19] LABS: BASE EXCESS 5.4 mEq/L (-3 to +3); CARBOXY HGB 3.1 % (0-5); DEVICE CANNULA; METHEMOGLOBIN 1.3 % (0-1.5); O2 FLOW 5 L/MIN; PCO2 50 mm Hg (35-45); PO2 63 mm Hg (80-100); SITE LR
[2016-08-28 10:20] LABS: TOTAL RESP RATE 20 resp/min
[2016-08-28 11:23] VITALS: BP 108/74
[2016-08-28 15:46] VITALS: BP 101/65
[2016-08-28 20:00] VITALS: BP 116/74
[2016-08-29] VITALS (8 sets, daily range): BP systolic 96–117; BP diastolic 57–70
[2016-08-29 03:44] LABS: INTER. NORMALIZED RATIO 2.4; PROTHROMBIN TIME 24.8 (9.2-11.2)
[2016-08-29 06:32] LABS: HEMATOCRIT 27.9 % (38.0-50.0); MCH 31.6 PG (29.0-34.0); MCV 95.9 FL (86-99); MEAN PLAT.VOLUME 10.1 uM^3 (9.0-12.4); PLATELET COUNT 204 K/uL (156-360); RBC DIS.WIDTH-SD 59.5 % (39-53); RED BLOOD COUNT 2.91 M/uL (4.00-5.50); WHITE BLOOD COUNT 7.2 K/uL (4.1-10.2)
[2016-08-29 06:44] LABS: INTER. NORMALIZED RATIO 2.1; PROTHROMBIN TIME 21.4 (9.2-11.2)
[2016-08-29 06:53] LABS: ANION GAP 7 MEQ/L (2-14); CHLORIDE 94 MEQ/L (99-109); GFR ESTIMATE (CALCULATED) 41 mL/min/; GLUCOSE 95 mg/dL (70-99); POTASSIUM 4.5 MEQ/L (3.7-5.4); SAMPLE HEMOLYSIS CHECK 0; SAMPLE ICTERIC CHECK 0; SAMPLE LIPEMIA CHECK 0; SODIUM 132 MEQ/L (136-147); UREA NITROGEN (BUN) 46 mg/dL (9-23)
[2016-08-30 04:08] VITALS: BP 93/51
[2016-08-30 06:50] LABS: MCH 31.5 PG (29.0-34.0); MCHC 32.8 G/DL (30.0-36.0); PLATELET COUNT 190 K/uL (156-360); RBC DIS.WIDTH-CV 16.6 % (11.8-14.6); RBC DIS.WIDTH-SD 57.4 % (39-53); RED BLOOD COUNT 3.02 M/uL (4.00-5.50); WHITE BLOOD COUNT 7.4 K/uL (4.1-10.2)
[2016-08-30 06:58] LABS: INTER. NORMALIZED RATIO 1.6; PROTHROMBIN TIME 16.1 (9.2-11.2)
[2016-08-30 07:17] LABS: ANION GAP 7 MEQ/L (2-14); CHLORIDE 93 MEQ/L (99-109); GFR ESTIMATE (CALCULATED) 41 mL/min/; GLUCOSE 87 mg/dL (70-99); POTASSIUM 4.6 MEQ/L (3.7-5.4); SAMPLE HEMOLYSIS CHECK 0; SAMPLE ICTERIC CHECK 0; SAMPLE LIPEMIA CHECK 0; SODIUM 131 MEQ/L (136-147); UREA NITROGEN (BUN) 47 mg/dL (9-23)
[2016-08-30 07:30] VITALS: BP 92/53
[2016-08-30 10:22] LABS: PTT 32.8 (25-32)
[2016-08-30 11:47] VITALS: BP 104/56
[2016-08-30 12:45] LABS: TYPE OF FLUID PARACENTESIS
[2016-08-30 13:19] LABS: BODY FLUID RBC'S 27000 /MM^3 (0-100); BODY FLUID WBC'S 663 /MM^3 (0-500)
[2016-08-30 13:32] LABS: BODY FLUID LDH 162 IU/L; BODY FLUID PROTEIN 3.3 G/DL
[2016-08-30 13:48] LABS: BODY FLUID EOSINOPHILS 1 % (0-25); MONO RAW COUNT 55; MONONUCLEAR WBC'S 55 %; POLY RAW COUNT 44; POLYNUCLEAR WBC'S 44 % (0-25)
[2016-08-30 15:29] VITALS: BP 101/63
[2016-08-30 19:28] VITALS: BP 96/63
[2016-08-30 23:51] VITALS: BP 98/54
[2016-08-31] VITALS (7 sets, daily range): BP systolic 90–137; BP diastolic 51–84
[2016-08-31 08:35] LABS: HEMATOCRIT 26.8 % (38.0-50.0); MCH 31.1 PG (29.0-34.0); MCHC 33.2 G/DL (30.0-36.0); MCV 93.7 FL (86-99); MEAN PLAT.VOLUME 10.5 uM^3 (9.0-12.4); PLATELET COUNT 163 K/uL (156-360); RBC DIS.WIDTH-CV 16.3 % (11.8-14.6); RBC DIS.WIDTH-SD 55.9 % (39-53); RED BLOOD COUNT 2.86 M/uL (4.00-5.50); WHITE BLOOD COUNT 6.7 K/uL (4.1-10.2)
[2016-08-31 08:40] LABS: BASOPHIL COUNT 0.1 K/uL (0-0.1); EOSINOPHIL (%) 4.2 % (0-5); EOSINOPHIL COUNT 0.3 K/uL (0-0.3); IMMATURE GRANULOCYTE (%) 0.4 % (0.0-0.7); MONOCYTE (%) 8.3 % (3-12); MONOCYTE COUNT 0.6 K/uL (0-0.8); NEUTROPHIL (%) 71.3 % (45-76); NEUTROPHIL COUNT 4.8 K/uL (1.8-6.4)
[2016-08-31 08:52] LABS: PTT 66.7 (25-32)
[2016-08-31 09:27] LABS: INTER. NORMALIZED RATIO 1.7; PROTHROMBIN TIME 17.4 (9.2-11.2)
[2016-08-31 09:44] LABS: ANION GAP 8 MEQ/L (2-14); CHLORIDE 92 MEQ/L (99-109); GFR ESTIMATE (CALCULATED) 41 mL/min/; GLUCOSE 92 mg/dL (70-99); POTASSIUM 4.4 MEQ/L (3.7-5.4); SAMPLE HEMOLYSIS CHECK 0; SAMPLE ICTERIC CHECK 0; SAMPLE LIPEMIA CHECK 0; SODIUM 131 MEQ/L (136-147); UREA NITROGEN (BUN) 46 mg/dL (9-23)
[2016-09-01 04:43] VITALS: BP 100/58
[2016-09-01 06:51] LABS: INTER. NORMALIZED RATIO 1.6; PROTHROMBIN TIME 16.9 (9.2-11.2)
[2016-09-01 07:02] LABS: ANION GAP 8 MEQ/L (2-14); CHLORIDE 90 MEQ/L (99-109); GFR ESTIMATE (CALCULATED) 41 mL/min/; GLUCOSE 92 mg/dL (70-99); POTASSIUM 4.5 MEQ/L (3.7-5.4); SAMPLE HEMOLYSIS CHECK 0; SAMPLE ICTERIC CHECK 0; SAMPLE LIPEMIA CHECK 0; SODIUM 130 MEQ/L (136-147); UREA NITROGEN (BUN) 46 mg/dL (9-23)
[2016-09-01 07:06] LABS: MCH 30.3 PG (29.0-34.0); MCHC 32.5 G/DL (30.0-36.0); MCV 93.3 FL (86-99); RBC DIS.WIDTH-CV 16.2 % (11.8-14.6); RBC DIS.WIDTH-SD 55.4 % (39-53); WHITE BLOOD COUNT 7.2 K/uL (4.1-10.2)
[2016-09-01 07:18] LABS: ABS NEUTROPHIL COUNT 6.07; EOSINOPHIL ABS CT 0.22; MACROCYTES 1+; PLAT.SUFFICIENCY ADEQUATE
[2016-09-01 07:19] LABS: DELETE MACHINE DIFF? YES; PLATELET COUNT UNABLE TO REPORT K/uL (156-360)
[2016-09-01 08:00] VITALS: BP 110/61
[2016-09-01 11:50] VITALS: BP 94/61
[2016-09-01 16:43] VITALS: BP 97/63
[2016-09-01 20:00] VITALS: BP 105/59
[2016-09-02] VITALS: BP 111/84
[2016-09-02 04:00] VITALS: BP 109/51
[2016-09-02 07:39] VITALS: BP 102/68
[2016-09-02 10:03] LABS: HEMATOCRIT 32.1 % (38.0-50.0); INTER. NORMALIZED RATIO 1.7; MCH 30.1 PG (29.0-34.0); MCHC 31.8 G/DL (30.0-36.0); MCV 94.7 FL (86-99); PROTHROMBIN TIME 17.4 (9.2-11.2); PTT 59.8 (25-32); RBC DIS.WIDTH-CV 16.5 % (11.8-14.6); RBC DIS.WIDTH-SD 57.6 % (39-53); RED BLOOD COUNT 3.39 M/uL (4.00-5.50)
[2016-09-02 10:14] LABS: BASOPHIL COUNT 0.1 K/uL (0-0.1); EOSINOPHIL (%) 4.1 % (0-5); EOSINOPHIL COUNT 0.3 K/uL (0-0.3); IMMATURE GRANULOCYTE (%) 0.4 % (0.0-0.7); LYMPHOCYTE COUNT 0.5 K/uL (1.0-2.8); MONOCYTE (%) 15.1 % (3-12); MONOCYTE COUNT 1.2 K/uL (0-0.8); NEUTROPHIL (%) 73.4 % (45-76); NEUTROPHIL COUNT 5.9 K/uL (1.8-6.4)
[2016-09-02 10:19] LABS: ANION GAP 7 MEQ/L (2-14); CHLORIDE 90 MEQ/L (99-109); GFR ESTIMATE (CALCULATED) 39 mL/min/; GLUCOSE 102 mg/dL (70-99); POTASSIUM 4.1 MEQ/L (3.7-5.4); SAMPLE HEMOLYSIS CHECK 0; SAMPLE ICTERIC CHECK 0; SAMPLE LIPEMIA CHECK 0; SODIUM 131 MEQ/L (136-147); UREA NITROGEN (BUN) 46 mg/dL (9-23)
[2016-09-02 10:48] LABS: MEAN PLAT.VOLUME 10.7 uM^3 (9.0-12.4); PLAT.SUFFICIENCY ADEQUATE; PLATELET COUNT 220 K/uL (156-360); USER ID STC
[2016-09-02 11:07] VITALS: BP 104/66
[2016-09-02 15:30] VITALS: BP 109/71
[2016-09-02 20:00] VITALS: BP 118/69
[2016-09-03 04:00] VITALS: BP 100/54
[2016-09-03 07:06] LABS: HEMATOCRIT 28.7 % (38.0-50.0); MCH 31.3 PG (29.0-34.0); MCHC 33.1 G/DL (30.0-36.0); MCV 94.4 FL (86-99); MEAN PLAT.VOLUME 10.9 uM^3 (9.0-12.4); PLATELET COUNT 203 K/uL (156-360); RBC DIS.WIDTH-CV 16.3 % (11.8-14.6); RBC DIS.WIDTH-SD 56.1 % (39-53); RED BLOOD COUNT 3.04 M/uL (4.00-5.50); WHITE BLOOD COUNT 8.2 K/uL (4.1-10.2)
[2016-09-03 07:24] LABS: BASOPHIL COUNT 0.1 K/uL (0-0.1); EOSINOPHIL (%) 3.3 % (0-5); EOSINOPHIL COUNT 0.3 K/uL (0-0.3); IMMATURE GRANULOCYTE (%) 0.4 % (0.0-0.7); LYMPHOCYTE COUNT 1.1 K/uL (1.0-2.8); MONOCYTE (%) 10.7 % (3-12); MONOCYTE COUNT 0.9 K/uL (0-0.8); NEUTROPHIL (%) 71.6 % (45-76); NEUTROPHIL COUNT 5.9 K/uL (1.8-6.4)
[2016-09-03 07:25] LABS: INTER. NORMALIZED RATIO 1.7; PROTHROMBIN TIME 18.1 (9.2-11.2); PTT 53.9 (25-32)
[2016-09-03 07:50] LABS: ANION GAP 8 MEQ/L (2-14); CHLORIDE 89 MEQ/L (99-109); GFR ESTIMATE (CALCULATED) 34 mL/min/; GLUCOSE 89 mg/dL (70-99); POTASSIUM 4.9 MEQ/L (3.7-5.4); SAMPLE HEMOLYSIS CHECK 0; SAMPLE ICTERIC CHECK 0; SAMPLE LIPEMIA CHECK 0; SODIUM 130 MEQ/L (136-147); UREA NITROGEN (BUN) 47 mg/dL (9-23)
[2016-09-03 07:59] VITALS: BP 90/53
[2016-09-03 12:12] VITALS: BP 104/60
[2016-09-03 16:16] VITALS: BP 98/68
[2016-09-03 20:10] VITALS: BP 108/76
[2016-09-03 23:29] VITALS: BP 105/61
[2016-09-04 04:19] VITALS: BP 90/51
[2016-09-04 06:50] LABS: HEMATOCRIT 27.7 % (38.0-50.0); MCH 31.5 PG (29.0-34.0); MCHC 33.6 G/DL (30.0-36.0); MCV 93.9 FL (86-99); PLATELET COUNT 213 K/uL (156-360); RBC DIS.WIDTH-CV 16.4 % (11.8-14.6); RBC DIS.WIDTH-SD 55.9 % (39-53); RED BLOOD COUNT 2.95 M/uL (4.00-5.50)
[2016-09-04 06:54] LABS: INTER. NORMALIZED RATIO 1.9; PROTHROMBIN TIME 20.1 (9.2-11.2); PTT 55.3 (25-32)
[2016-09-04 07:07] LABS: ANION GAP 8 MEQ/L (2-14); CHLORIDE 87 MEQ/L (99-109); GFR ESTIMATE (CALCULATED) 32 mL/min/; GLUCOSE 92 mg/dL (70-99); POTASSIUM 4.9 MEQ/L (3.7-5.4); SAMPLE HEMOLYSIS CHECK 0; SAMPLE ICTERIC CHECK 0; SAMPLE LIPEMIA CHECK 0; SODIUM 127 MEQ/L (136-147); UREA NITROGEN (BUN) 52 mg/dL (9-23)
[2016-09-04 07:11] LABS: BASOPHIL COUNT 0.1 K/uL (0-0.1); EOSINOPHIL (%) 4.3 % (0-5); EOSINOPHIL COUNT 0.3 K/uL (0-0.3); IMMATURE GRANULOCYTE (%) 0.5 % (0.0-0.7); LYMPHOCYTE COUNT 0.6 K/uL (1.0-2.8); MONOCYTE (%) 16.9 % (3-12); MONOCYTE COUNT 1.4 K/uL (0-0.8); NEUTROPHIL (%) 69.5 % (45-76); NEUTROPHIL COUNT 5.6 K/uL (1.8-6.4)
[2016-09-04 07:57] LABS: HEMATOLOGY COMMENT 1 SMEAR COMPATIBLE; USER ID STC
[2016-09-04 08:22] VITALS: BP 100/59
[2016-09-04 12:13] VITALS: BP 102/68
[2016-09-04 16:30] VITALS: BP 104/64
[2016-09-04 21:05] VITALS: BP 92/58
[2016-09-05] VITALS (7 sets, daily range): BP systolic 98–120; BP diastolic 61–73
[2016-09-05 06:55] LABS: HEMATOCRIT 27.7 % (38.0-50.0); MCH 29.9 PG (29.0-34.0); MCHC 32.1 G/DL (30.0-36.0); MEAN PLAT.VOLUME 10.5 uM^3 (9.0-12.4); PLATELET COUNT 223 K/uL (156-360); RBC DIS.WIDTH-CV 16.3 % (11.8-14.6); RBC DIS.WIDTH-SD 55.4 % (39-53); RED BLOOD COUNT 2.98 M/uL (4.00-5.50); WHITE BLOOD COUNT 7.3 K/uL (4.1-10.2)
[2016-09-05 07:11] LABS: EOSINOPHIL (%) 3.7 % (0-5); EOSINOPHIL COUNT 0.3 K/uL (0-0.3); IMMATURE GRANULOCYTE (%) 0.3 % (0.0-0.7); LYMPHOCYTE COUNT 0.5 K/uL (1.0-2.8); MONOCYTE (%) 18.6 % (3-12); MONOCYTE COUNT 1.4 K/uL (0-0.8); NEUTROPHIL (%) 70.6 % (45-76); NEUTROPHIL COUNT 5.1 K/uL (1.8-6.4)
[2016-09-05 07:18] LABS: ANION GAP 8 MEQ/L (2-14); CHLORIDE 87 MEQ/L (99-109); GFR ESTIMATE (CALCULATED) 29 mL/min/; GLUCOSE 101 mg/dL (70-99); POTASSIUM 5.1 MEQ/L (3.7-5.4); SAMPLE HEMOLYSIS CHECK 0; SAMPLE ICTERIC CHECK 0; SAMPLE LIPEMIA CHECK 0; SODIUM 128 MEQ/L (136-147); UREA NITROGEN (BUN) 55 mg/dL (9-23)
[2016-09-05 07:30] LABS: INTER. NORMALIZED RATIO 2.4; PROTHROMBIN TIME 25.4 (9.2-11.2); PTT 45.4 (25-32)
[2016-09-05 08:19] LABS: HEMATOLOGY COMMENT 1 SMEAR COMPATIBLE; USER ID STC
[2016-09-06 03:59] VITALS: BP 106/62
[2016-09-06 07:06] LABS: HEMATOCRIT 27.5 % (38.0-50.0); MCHC 33.1 G/DL (30.0-36.0); MCV 93.5 FL (86-99); MEAN PLAT.VOLUME 10.1 uM^3 (9.0-12.4); PLATELET COUNT 225 K/uL (156-360); RBC DIS.WIDTH-CV 16.3 % (11.8-14.6); RED BLOOD COUNT 2.94 M/uL (4.00-5.50); WHITE BLOOD COUNT 7.5 K/uL (4.1-10.2)
[2016-09-06 07:22] LABS: INTER. NORMALIZED RATIO 2.6; PROTHROMBIN TIME 27.7 (9.2-11.2)
[2016-09-06 07:27] LABS: ANION GAP 8 MEQ/L (2-14); CHLORIDE 88 MEQ/L (99-109); GFR ESTIMATE (CALCULATED) 31 mL/min/; GLUCOSE 93 mg/dL (70-99); POTASSIUM 4.5 MEQ/L (3.7-5.4); SAMPLE HEMOLYSIS CHECK 0; SAMPLE ICTERIC CHECK 0; SAMPLE LIPEMIA CHECK 0; SODIUM 129 MEQ/L (136-147); UREA NITROGEN (BUN) 53 mg/dL (9-23)
[2016-09-06 07:38] LABS: EOSINOPHIL (%) 3.8 % (0-5); EOSINOPHIL COUNT 0.3 K/uL (0-0.3); IMMATURE GRANULOCYTE (%) 0.3 % (0.0-0.7); LYMPHOCYTE COUNT 1.1 K/uL (1.0-2.8); MONOCYTE (%) 10.2 % (3-12); MONOCYTE COUNT 0.8 K/uL (0-0.8); NEUTROPHIL (%) 70.3 % (45-76); NEUTROPHIL COUNT 5.3 K/uL (1.8-6.4)
[2016-09-06 09:00] VITALS: BP 102/67
[2016-09-06 11:00] VITALS: BP 114/50
[2016-09-06 15:15] VITALS: BP 104/65
[2016-09-06 20:00] VITALS: BP 105/60
[2016-09-07] VITALS: BP 93/51
[2016-09-07 05:21] VITALS: BP 86/52
[2016-09-07 07:00] LABS: HEMATOCRIT 28.8 % (38.0-50.0); MCH 30.1 PG (29.0-34.0); MCHC 31.9 G/DL (30.0-36.0); MCV 94.1 FL (86-99); MEAN PLAT.VOLUME 10.6 uM^3 (9.0-12.4); PLATELET COUNT 250 K/uL (156-360); RBC DIS.WIDTH-CV 16.6 % (11.8-14.6); RBC DIS.WIDTH-SD 57.3 % (39-53); RED BLOOD COUNT 3.06 M/uL (4.00-5.50); WHITE BLOOD COUNT 7.8 K/uL (4.1-10.2)
[2016-09-07 07:05] LABS: PROTHROMBIN TIME 32.1 (9.2-11.2)
[2016-09-07 07:06] LABS: EOSINOPHIL (%) 3.3 % (0-5); EOSINOPHIL COUNT 0.3 K/uL (0-0.3); IMMATURE GRANULOCYTE (%) 0.1 % (0.0-0.7); MONOCYTE (%) 9.3 % (3-12); MONOCYTE COUNT 0.7 K/uL (0-0.8); NEUTROPHIL COUNT 5.8 K/uL (1.8-6.4)
[2016-09-07 07:24] LABS: ANION GAP 6 MEQ/L (2-14); CHLORIDE 88 MEQ/L (99-109); GFR ESTIMATE (CALCULATED) 32 mL/min/; GLUCOSE 97 mg/dL (70-99); POTASSIUM 4.7 MEQ/L (3.7-5.4); SAMPLE HEMOLYSIS CHECK 0; SAMPLE ICTERIC CHECK 0; SAMPLE LIPEMIA CHECK 0; SODIUM 129 MEQ/L (136-147); UREA NITROGEN (BUN) 52 mg/dL (9-23)
[2016-09-07 07:45] VITALS: BP 97/61
[2016-09-07 11:15] VITALS: BP 105/60
[2016-09-07 16:24] VITALS: BP 104/80
[2016-09-07 19:30] VITALS: BP 124/78
[2016-09-08 00:19] VITALS: BP 98/65
[2016-09-08 04:00] VITALS: BP 100/62
[2016-09-08 06:43] LABS: INTER. NORMALIZED RATIO 3.7; PROTHROMBIN TIME 39.5 (9.2-11.2)
[2016-09-08 07:05] LABS: ANION GAP 8 MEQ/L (2-14); CHLORIDE 87 MEQ/L (99-109); GFR ESTIMATE (CALCULATED) 36 mL/min/; GLUCOSE 89 mg/dL (70-99); POTASSIUM 4.6 MEQ/L (3.7-5.4); SAMPLE HEMOLYSIS CHECK 0; SAMPLE ICTERIC CHECK 0; SAMPLE LIPEMIA CHECK 0; SODIUM 128 MEQ/L (136-147); UREA NITROGEN (BUN) 48 mg/dL (9-23)
[2016-09-08 08:05] VITALS: BP 100/57
[2016-09-08] MEDS ORDERED: MIDODRINE HCL5 MG PO (09:51)
[2016-09-08] MEDS ORDERED: BUMETANIDE1 MG PO (09:51)
[2016-09-08] MEDS ORDERED: SPIRONOLACTONE50 MG PO (09:51)
[2016-09-08] MEDS ORDERED: RENVELA800 MG PO (09:51)
[2016-09-08 11:00] VITALS: BP 107/64
[2016-09-08] MEDS ORDERED: COUMADIN1 MG PO (11:07)
== END 2016-09-08 13:12 | DRG 682 ==
LOC: EME 18:33 → 4EAST 08-20 00:10 → EDOF 08-20 00:10 → 4EAST 08-20 14:24
PROVIDERS: Hospitalist; Internal Medicine; Internal Medicine Nephrology; Nurse Practitioner Family; Radiology Diagnostic Radiology; Thoracic Surgery (Cardiothoracic Vascular Surgery)
PROC: 0W993ZZ Drainage of Right Pleural Cavity, Percutaneous Approach (ICD-10-PCS; principal; 2016-08-29)
PROC: 0W9G3ZZ Drainage of Peritoneal Cavity, Percutaneous Approach (ICD-10-PCS; 2016-08-30)
PROC: 0W9930Z Drainage of Right Pleural Cavity with Drainage Device, Percutaneous Approach (ICD-10-PCS; 2016-09-01)
DX: N17.9 Acute kidney failure, unspecified (principal); J96.01 Acute respiratory failure with hypoxia; I50.23 Acute on chronic systolic (congestive) heart failure; J18.9 Pneumonia, unspecified organism; J90 Pleural effusion, not elsewhere classified; R18.8 Other ascites; E87.1 Hypo-osmolality and hyponatremia; J98.11 Atelectasis; E87.5 Hyperkalemia; I95.9 Hypotension, unspecified; N18.3 Chronic kidney disease, stage 3 (moderate); I27.2 Other secondary pulmonary hypertension; K74.60 Unspecified cirrhosis of liver; D63.1 Anemia in chronic kidney disease; I71.2 Thoracic aortic aneurysm, without rupture; E86.0 Dehydration; I48.2 Chronic atrial fibrillation; E78.5 Hyperlipidemia, unspecified; K57.30 Diverticulosis of large intestine without perforation or abscess without bleeding; I12.9 Hypertensive chronic kidney disease with stage 1 through stage 4 chronic kidney disease, or unspecified chronic kidney disease; N28.1 Cyst of kidney, acquired; R79.1 Abnormal coagulation profile; T45.515A Adverse effect of anticoagulants, initial encounter; Z95.0 Presence of cardiac pacemaker; Z91.128 Patient's intentional underdosing of medication regimen for other reason; Z90.49 Acquired absence of other specified parts of digestive tract; Z95.2 Presence of prosthetic heart valve; Z85.038 Personal history of other malignant neoplasm of large intestine; Z79.01 Long term (current) use of anticoagulants; Z88.2 Allergy status to sulfonamides; Z80.42 Family history of malignant neoplasm of prostate; Z82.0 Family history of epilepsy and other diseases of the nervous system; Z80.1 Family history of malignant neoplasm of trachea, bronchus and lung
CPT/HCPCS: 36415; 36600; 71010; 71020; 74000; 74176; 76705; 76770; 80048; 80048 91; 80053; 80069; 80076; 81003; 82803; 82945; 83605; 83615 91; 83690; 83735; 83880; 83970; 83986 90; 84100; 84132; 84157; 84484; 84550; 85025; 85027; 85610; 85730; 87070; 87075; 87205; 88108; 88305; 89051; 89190; 93005; 94640; 94640 76; 94760; 94799; 97530 GO; 97530 GP; 99202; 99281; 99285; C1729; J2405; J3010; J3430; J7030; J7050; P9047

== ENCOUNTER 2016-11-18 11:42 | Inpatient (IN) | payer OTHER ==
[~2016-11-18] VITALS: Ht 182.9 cm; Wt 62.9 kg
[~2016-11-18 11:42] MED LIST changes: +ACETAMINOPHEN325 M3 PO; +ALDACTONE25 MG PO; +AMBIEN5 MG PO; +BUMETANIDE1 MG PO; +DIGITEK250 MC2 PO; +FOLIC ACID0.8 MG PO; +LIPITOR10 MG PO; +METOLAZONE2.5 MG PO; +MIDODRINE HCL5 MG PO; +MULTIVITAMIN1 EAC2 PO; +NEURONTIN100 MG PO; +OXAYDO5 MG PO; +RENVELA800 MG PO; +SPIRONOLACTONE50 MG PO; +ZESTRIL2.5 MG PO
[2016-11-18 14:12] LABS: HEMATOCRIT 30.9 % (38.0-50.0); MCH 29.2 PG (29.0-34.0); MCHC 32.4 G/DL (30.0-36.0); MCV 90.1 FL (86-99); MEAN PLAT.VOLUME 9.2 uM^3 (9.0-12.4); PLATELET COUNT 242 K/uL (156-360); RBC DIS.WIDTH-CV 16.2 % (11.8-14.6); RBC DIS.WIDTH-SD 52.7 % (39-53); RED BLOOD COUNT 3.43 M/uL (4.00-5.50); WHITE BLOOD COUNT 8.5 K/uL (4.1-10.2)
[2016-11-18 14:21] LABS: CHLORIDE 94 mEq/L (99-109); POTASSIUM 5.2 mEq/L (3.7-5.4); SODIUM 130 mEq/L (136-147)
[2016-11-18 14:22] LABS: GLUCOSE 93 mg/dL (70-99)
[2016-11-18 14:24] LABS: ANION GAP 9 MEQ/L (2-14)
[2016-11-18 14:26] LABS: GFR ESTIMATE (CALCULATED) 32 mL/min/
[2016-11-18 14:27] LABS: UREA NITROGEN (BUN) 59 mg/dL (9-23)
[2016-11-18 14:33] LABS: TROP-I INTERPRETATION NEGATIVE; TROPONIN-I 0.13 ng/mL (0.0-0.30)
[2016-11-18 20:18] LABS: INTER. NORMALIZED RATIO 2.9; PROTHROMBIN TIME 30.3 (9.2-11.2); PTT 39.5 (25-32)
[2016-11-18] MEDS ORDERED: HYDROCODON-ACE1 EAC7 PO (21:04)
[2016-11-18] MEDS ORDERED: COUMADIN5 MG PO ×2 (21:05)
[2016-11-18] MEDS ORDERED: LISINOPRIL2.5 MG PO (21:07)
[2016-11-18] MEDS ORDERED: PROTONIX40 MG PO (21:08)
[2016-11-18] MEDS ORDERED: ZOCOR20 MG PO (21:08)
[2016-11-18] MEDS ORDERED: FUROSEMIDE40 MG PO (21:09)
[2016-11-18] MEDS ORDERED: AMBIEN5 MG PO (21:10)
[2016-11-18] MEDS ORDERED: FERRO-TIME325 MG PO (21:10)
[2016-11-18] MEDS ORDERED: LOPRESSOR25 MG PO (21:11)
[2016-11-18 22:32] LABS: TROP-I INTERPRETATION NEGATIVE
[2016-11-19] VITALS (8 sets, daily range): BP systolic 108–123; BP diastolic 58–76
[2016-11-19 03:31] LABS: HEMATOCRIT 29.2 % (38.0-50.0); MCH 28.8 PG (29.0-34.0); MCHC 32.2 G/DL (30.0-36.0); MCV 89.6 FL (86-99); MEAN PLAT.VOLUME 9.7 uM^3 (9.0-12.4); PLATELET COUNT 229 K/uL (156-360); RBC DIS.WIDTH-CV 15.9 % (11.8-14.6); RBC DIS.WIDTH-SD 52.1 % (39-53); RED BLOOD COUNT 3.26 M/uL (4.00-5.50); WHITE BLOOD COUNT 8.1 K/uL (4.1-10.2)
[2016-11-19 03:45] LABS: CHLORIDE 95 mEq/L (99-109); POTASSIUM 4.3 mEq/L (3.7-5.4); SODIUM 130 mEq/L (136-147)
[2016-11-19 03:48] LABS: GLUCOSE 103 mg/dL (70-99)
[2016-11-19 03:49] LABS: ANION GAP 9 MEQ/L (2-14); TOTAL BILIRUBIN 0.9 mg/dL (0.0-1.0)
[2016-11-19 03:51] LABS: ALKALINE PHOSPHATASE 210 IU/L (3-129); GFR ESTIMATE (CALCULATED) 39 mL/min/
[2016-11-19 03:52] LABS: TROP-I INTERPRETATION NEGATIVE; TROPONIN-I 0.11 ng/mL (0.0-0.30); UREA NITROGEN (BUN) 56 mg/dL (9-23)
[2016-11-19 13:30] LABS: INTER. NORMALIZED RATIO 2.4; PROTHROMBIN TIME 25.5 (9.2-11.2)
[2016-11-20 02:54] VITALS: BP 99/58
[2016-11-20 08:00] VITALS: BP 88/61
[2016-11-20 08:36] LABS: INTER. NORMALIZED RATIO 2.6
[2016-11-20 11:09] LABS: ADD MIUA? NO; BILIRUBIN NEGATIVE; BLOOD NEGATIVE; COLOR YELLOW ((YELLOW)); GLUCOSE (STRIP) NEGATIVE; KETONES NEGATIVE; LEUKOCYTES NEGATIVE; NITRITE NEGATIVE; PROTEIN (STRIP) NEGATIVE; SPECIFIC GRAVITY 1.012 (1.000-1.030); UCUL ADDED? NO; UROBILINOGEN 0.2 MG/DL (0.2-1.0)
[2016-11-20 11:32] VITALS: BP 96/54
[2016-11-20 16:03] VITALS: BP 98/56
[2016-11-20 20:13] VITALS: BP 98/54
[2016-11-20 23:56] VITALS: BP 94/54
[2016-11-21 04:21] VITALS: BP 94/58
[2016-11-21 06:49] LABS: INTER. NORMALIZED RATIO 2.9; PROTHROMBIN TIME 30.3 (9.2-11.2)
[2016-11-21 08:27] VITALS: BP 105/63
[2016-11-21 08:41] LABS: HEMATOCRIT 29.2 % (38.0-50.0); MCH 28.6 PG (29.0-34.0); MCHC 30.8 G/DL (30.0-36.0); MCV 92.7 FL (86-99); MEAN PLAT.VOLUME 9.5 uM^3 (9.0-12.4); PLATELET COUNT 281 K/uL (156-360); RBC DIS.WIDTH-CV 15.9 % (11.8-14.6); RBC DIS.WIDTH-SD 54.3 % (39-53); RED BLOOD COUNT 3.15 M/uL (4.00-5.50); WHITE BLOOD COUNT 7.6 K/uL (4.1-10.2)
[2016-11-21 09:03] LABS: ANION GAP 6 MEQ/L (2-14); CHLORIDE 92 MEQ/L (99-109); GFR ESTIMATE (CALCULATED) 34 mL/min/; GLUCOSE 75 mg/dL (70-99); POTASSIUM 4.4 MEQ/L (3.7-5.4); SAMPLE HEMOLYSIS CHECK 0; SAMPLE ICTERIC CHECK 0; SAMPLE LIPEMIA CHECK 0; SODIUM 129 MEQ/L (136-147); UREA NITROGEN (BUN) 55 mg/dL (9-23)
[2016-11-21 12:58] VITALS: BP 101/64
[2016-11-21 16:18] VITALS: BP 114/68
[2016-11-21 19:56] VITALS: BP 95/59
[2016-11-21 23:09] VITALS: BP 88/53
[2016-11-22 04:56] VITALS: BP 92/59
[2016-11-22 07:29] LABS: HEMATOCRIT 31.2 % (38.0-50.0); MCH 29.6 PG (29.0-34.0); MCHC 32.1 G/DL (30.0-36.0); MCV 92.3 FL (86-99); MEAN PLAT.VOLUME 9.1 uM^3 (9.0-12.4); NEUTROPHIL (%) 74.9 % (45-76); PLATELET COUNT 280 K/uL (156-360); RBC DIS.WIDTH-CV 15.9 % (11.8-14.6); RBC DIS.WIDTH-SD 53.4 % (39-53); RED BLOOD COUNT 3.38 M/uL (4.00-5.50); WHITE BLOOD COUNT 7.3 K/uL (4.1-10.2)
[2016-11-22 07:30] LABS: EOSINOPHIL (%) 4.7 % (0-5); EOSINOPHIL COUNT 0.3 K/uL (0-0.3); IMMATURE GRANULOCYTE COUNT 0.1 K/uL; INSTRUMENT ABS NEUTROPHIL CT 5.5 K/uL; LYMPHOCYTE COUNT 0.4 K/uL (1.0-2.8); NEUTROPHIL COUNT 5.5 K/uL (1.8-6.4)
[2016-11-22 07:37] LABS: INTER. NORMALIZED RATIO 3.5; PROTHROMBIN TIME 36.9 (9.2-11.2)
[2016-11-22 07:45] VITALS: BP 105/68
[2016-11-22 07:57] LABS: ANION GAP 7 MEQ/L (2-14); CHLORIDE 92 MEQ/L (99-109); GFR ESTIMATE (CALCULATED) 34 mL/min/; GLUCOSE 89 mg/dL (70-99); POTASSIUM 4.4 MEQ/L (3.7-5.4); SAMPLE HEMOLYSIS CHECK 0; SAMPLE ICTERIC CHECK 0; SAMPLE LIPEMIA CHECK 0; SODIUM 128 MEQ/L (136-147); UREA NITROGEN (BUN) 55 mg/dL (9-23)
[2016-11-22 11:51] VITALS: BP 115/70
[2016-11-22 15:49] VITALS: BP 106/59
[2016-11-22 19:24] VITALS: BP 96/60
[2016-11-23 00:06] VITALS: BP 85/53
[2016-11-23 05:00] VITALS: BP 102/55
[2016-11-23 08:00] VITALS: BP 107/63
[2016-11-23 08:23] LABS: INTER. NORMALIZED RATIO 4.1; PROTHROMBIN TIME 43.6 (9.2-11.2)
[2016-11-23 08:34] LABS: ANION GAP 7 MEQ/L (2-14); CHLORIDE 92 MEQ/L (99-109); GFR ESTIMATE (CALCULATED) 39 mL/min/; GLUCOSE 79 mg/dL (70-99); POTASSIUM 4.8 MEQ/L (3.7-5.4); SAMPLE HEMOLYSIS CHECK 0; SAMPLE ICTERIC CHECK 0; SAMPLE LIPEMIA CHECK 0; SODIUM 129 MEQ/L (136-147); UREA NITROGEN (BUN) 52 mg/dL (9-23)
[2016-11-23 11:30] LABS: BASE EXCESS 5.2 mEq/L (-3 to +3); BICARBONATE 31.4 mEq/L (22-26); CARBOXY HGB 2.8 % (0-5); COMMENTS - BLOOD GASES A+C+; DEVICE NC; METHEMOGLOBIN 1.8 % (0-1.5); O2 FLOW 2 L/MIN; PCO2 53 mm Hg (35-45); PO2 67 mm Hg (80-100); SITE RR; TOTAL RESP RATE 26 resp/min; pH 7.38 (7.35-7.45)
[2016-11-23 13:56] VITALS: BP 96/57
[2016-11-23 17:20] VITALS: BP 113/67
[2016-11-23 19:17] VITALS: BP 109/62
[2016-11-24 01:06] VITALS: BP 113/65
[2016-11-24 05:15] VITALS: BP 106/65
[2016-11-24 07:08] LABS: BASE EXCESS 4.8 mEq/L (-3 to +3); BICARBONATE 31.8 mEq/L (22-26); CARBOXY HGB 2.6 % (0-5); METHEMOGLOBIN 1.4 % (0-1.5); PO2 74 mm Hg (80-100); pH 7.34 (7.35-7.45)
[2016-11-24 07:09] LABS: COMMENTS - BLOOD GASES NAC+; DEVICE CANNULA; O2 FLOW 5 L/MIN; PCO2 59 mm Hg (35-45); SITE RR
[2016-11-24 08:05] LABS: EOSINOPHIL (%) 2.3 % (0-5); EOSINOPHIL COUNT 0.2 K/uL (0-0.3); HEMATOCRIT 32.6 % (38.0-50.0); IMMATURE GRANULOCYTE (%) 0.9 % (0.0-0.7); IMMATURE GRANULOCYTE COUNT 0.1 K/uL; INSTRUMENT ABS NEUTROPHIL CT 4.6 K/uL; LYMPHOCYTE COUNT 0.4 K/uL (1.0-2.8); MCH 28.7 PG (29.0-34.0); MCHC 31.6 G/DL (30.0-36.0); MCV 90.8 FL (86-99); MEAN PLAT.VOLUME 8.9 uM^3 (9.0-12.4); MONOCYTE (%) 17.2 % (3-12); MONOCYTE COUNT 1.1 K/uL (0-0.8); NEUTROPHIL (%) 72.6 % (45-76); NEUTROPHIL COUNT 4.6 K/uL (1.8-6.4); PLATELET COUNT 281 K/uL (156-360); RBC DIS.WIDTH-CV 15.4 % (11.8-14.6); RBC DIS.WIDTH-SD 51.5 % (39-53); RED BLOOD COUNT 3.59 M/uL (4.00-5.50); WHITE BLOOD COUNT 6.4 K/uL (4.1-10.2)
[2016-11-24 08:28] LABS: INTER. NORMALIZED RATIO 3.6; PROTHROMBIN TIME 38.4 (9.2-11.2)
[2016-11-24 08:32] LABS: CHLORIDE 93 mEq/L (99-109); POTASSIUM 4.9 mEq/L (3.7-5.4); SODIUM 129 mEq/L (136-147)
[2016-11-24 08:34] LABS: GLUCOSE 91 mg/dL (70-99)
[2016-11-24 08:35] LABS: ANION GAP 8 MEQ/L (2-14)
[2016-11-24 08:38] LABS: GFR ESTIMATE (CALCULATED) 41 mL/min/
[2016-11-24 08:39] LABS: UREA NITROGEN (BUN) 51 mg/dL (9-23)
[2016-11-24 08:45] VITALS: BP 115/62
[2016-11-24 14:16] LABS: BASE EXCESS 2.4 mEq/L (-3 to +3); BICARBONATE 29.4 mEq/L (22-26); CARBOXY HGB 2.4 % (0-5); METHEMOGLOBIN 1.5 % (0-1.5); PCO2 57 mm Hg (35-45); pH 7.32 (7.35-7.45)
[2016-11-24 14:17] LABS: COMMENTS - BLOOD GASES NAC+; DEVICE HIGH FLOW NC; O2 FLOW 10 L/MIN; PO2 133 mm Hg (80-100); SITE RR
[2016-11-24 15:25] LABS: TROP-I INTERPRETATION NEGATIVE; TROPONIN-I 0.11 ng/mL (0.0-0.30)
[2016-11-24 15:44] VITALS: BP 107/65
[2016-11-24 20:00] VITALS: BP 103/58
[2016-11-24 23:15] VITALS: BP 105/65
[2016-11-25 03:00] VITALS: BP 95/52
[2016-11-25 05:56] LABS: EOSINOPHIL (%) 0 % (0-5); HEMATOCRIT 29.4 % (38.0-50.0); IMMATURE GRANULOCYTE (%) 0.9 % (0.0-0.7); IMMATURE GRANULOCYTE COUNT 0.1 K/uL; LYMPHOCYTE COUNT 0.2 K/uL (1.0-2.8); MCH 28.7 PG (29.0-34.0); MCHC 31.6 G/DL (30.0-36.0); MCV 90.7 FL (86-99); MEAN PLAT.VOLUME 9.3 uM^3 (9.0-12.4); MONOCYTE (%) 5.1 % (3-12); MONOCYTE COUNT 0.3 K/uL (0-0.8); NEUTROPHIL (%) 91.3 % (45-76); PLATELET COUNT 267 K/uL (156-360); RBC DIS.WIDTH-CV 15.6 % (11.8-14.6); RBC DIS.WIDTH-SD 51.8 % (39-53); RED BLOOD COUNT 3.24 M/uL (4.00-5.50); WHITE BLOOD COUNT 5.5 K/uL (4.1-10.2)
[2016-11-25 06:05] LABS: INTER. NORMALIZED RATIO 4.2; PROTHROMBIN TIME 44.5 (9.2-11.2)
[2016-11-25 06:26] LABS: CHLORIDE 92 mEq/L (99-109); POTASSIUM 5.3 mEq/L (3.7-5.4); SODIUM 130 mEq/L (136-147)
[2016-11-25 06:30] LABS: ANION GAP 11 MEQ/L (2-14)
[2016-11-25 06:31] LABS: GLUCOSE 160 mg/dL (70-99)
[2016-11-25 06:32] LABS: GFR ESTIMATE (CALCULATED) 34 mL/min/
[2016-11-25 06:33] LABS: UREA NITROGEN (BUN) 58 mg/dL (9-23)
[2016-11-25 07:53] VITALS: BP 97/60
[2016-11-25 08:04] LABS: BASE EXCESS 5.8 mEq/L (-3 to +3); BICARBONATE 31.9 mEq/L (22-26); COMMENTS - BLOOD GASES A+C+; DEVICE NC; METHEMOGLOBIN 1.7 % (0-1.5); O2 FLOW 4 L/MIN; PCO2 54 mm Hg (35-45); PO2 90 mm Hg (80-100); SITE RRA; TOTAL RESP RATE 21 resp/min; pH 7.38 (7.35-7.45)
[2016-11-25 12:10] VITALS: BP 106/58
[2016-11-25 16:30] VITALS: BP 110/63
[2016-11-25 19:30] VITALS: BP 93/55
[2016-11-25 23:00] VITALS: BP 118/73
[2016-11-26 03:10] VITALS: BP 115/62
[2016-11-26 06:47] LABS: PROTHROMBIN TIME 42.4 (9.2-11.2)
[2016-11-26 07:10] LABS: HEMATOCRIT 30.1 % (38.0-50.0); MCH 28.7 PG (29.0-34.0); MCHC 31.6 G/DL (30.0-36.0); MCV 90.9 FL (86-99); MEAN PLAT.VOLUME 9.8 uM^3 (9.0-12.4); PLATELET COUNT 316 K/uL (156-360); RBC DIS.WIDTH-CV 15.6 % (11.8-14.6); RBC DIS.WIDTH-SD 51.1 % (39-53); RED BLOOD COUNT 3.31 M/uL (4.00-5.50)
[2016-11-26 07:12] LABS: WHITE BLOOD COUNT 11.7 K/uL (4.1-10.2)
[2016-11-26 07:33] LABS: DIGOXIN 1.9 ng/mL (0.8-2.0)
[2016-11-26 09:12] VITALS: BP 116/73
[2016-11-26 09:39] LABS: ANION GAP 6 MEQ/L (2-14); CHLORIDE 91 MEQ/L (99-109); GFR ESTIMATE (CALCULATED) 32 mL/min/; GLUCOSE 127 mg/dL (70-99); POTASSIUM 5.3 MEQ/L (3.7-5.4); SAMPLE HEMOLYSIS CHECK 0; SAMPLE ICTERIC CHECK 0; SAMPLE LIPEMIA CHECK 0; SODIUM 127 MEQ/L (136-147); UREA NITROGEN (BUN) 70 mg/dL (9-23)
[2016-11-26 15:55] VITALS: BP 110/71
[2016-11-26 19:10] VITALS: BP 114/72
[2016-11-27 03:20] VITALS: BP 129/90
[2016-11-27 05:45] LABS: HEMATOCRIT 30.2 % (38.0-50.0); MCH 28.2 PG (29.0-34.0); MCHC 31.1 G/DL (30.0-36.0); MCV 90.7 FL (86-99); MEAN PLAT.VOLUME 9.5 uM^3 (9.0-12.4); PLATELET COUNT 303 K/uL (156-360); RBC DIS.WIDTH-CV 15.8 % (11.8-14.6); RBC DIS.WIDTH-SD 52.2 % (39-53); RED BLOOD COUNT 3.33 M/uL (4.00-5.50); WHITE BLOOD COUNT 11.9 K/uL (4.1-10.2)
[2016-11-27 05:55] LABS: INTER. NORMALIZED RATIO 3.5; PROTHROMBIN TIME 36.6 (9.2-11.2)
[2016-11-27 06:34] LABS: ANION GAP 8 MEQ/L (2-14); CHLORIDE 92 MEQ/L (99-109); GFR ESTIMATE (CALCULATED) 34 mL/min/; GLUCOSE 129 mg/dL (70-99); POTASSIUM 4.8 MEQ/L (3.7-5.4); SAMPLE HEMOLYSIS CHECK 0; SAMPLE ICTERIC CHECK 0; SAMPLE LIPEMIA CHECK 0; SODIUM 129 MEQ/L (136-147); UREA NITROGEN (BUN) 74 mg/dL (9-23)
[2016-11-27 08:39] VITALS: BP 118/72
[2016-11-27 15:00] VITALS: BP 131/70
[2016-11-27 20:33] VITALS: BP 118/66
[2016-11-27 23:53] VITALS: BP 110/60
[2016-11-28 04:00] VITALS: BP 120/70
[2016-11-28 05:16] LABS: HEMATOCRIT 30.9 % (38.0-50.0); MCH 28.9 PG (29.0-34.0); MCHC 31.4 G/DL (30.0-36.0); MEAN PLAT.VOLUME 9.7 uM^3 (9.0-12.4); PLATELET COUNT 294 K/uL (156-360); RBC DIS.WIDTH-CV 15.9 % (11.8-14.6); RBC DIS.WIDTH-SD 53.5 % (39-53); RED BLOOD COUNT 3.36 M/uL (4.00-5.50); WHITE BLOOD COUNT 11.6 K/uL (4.1-10.2)
[2016-11-28 05:32] LABS: INTER. NORMALIZED RATIO 2.9; PROTHROMBIN TIME 30.4 (9.2-11.2)
[2016-11-28 07:09] LABS: ANION GAP 7 MEQ/L (2-14); CHLORIDE 92 MEQ/L (99-109); GFR ESTIMATE (CALCULATED) 36 mL/min/; GLUCOSE 131 mg/dL (70-99); POTASSIUM 5.5 MEQ/L (3.7-5.4); SAMPLE HEMOLYSIS CHECK 0; SAMPLE ICTERIC CHECK 0; SAMPLE LIPEMIA CHECK 0; SODIUM 129 MEQ/L (136-147); UREA NITROGEN (BUN) 79 mg/dL (9-23)
[2016-11-28 10:20] VITALS: BP 104/70
[2016-11-28 12:22] VITALS: BP 126/69
[2016-11-28 14:09] LABS: BASE EXCESS 7.2 mEq/L (-3 to +3); BICARBONATE 34.5 mEq/L (22-26); CARBOXY HGB 2.3 % (0-5); COMMENTS - BLOOD GASES A+C+; DEVICE NC; O2 FLOW 2 L/MIN; PCO2 64 mm Hg (35-45); PO2 107 mm Hg (80-100); SITE RR; pH 7.34 (7.35-7.45)
[2016-11-28 14:17] LABS: ANION GAP 6 MEQ/L (2-14); CHLORIDE 92 MEQ/L (99-109); GFR ESTIMATE (CALCULATED) 39 mL/min/; GLUCOSE 133 mg/dL (70-99); POTASSIUM 5.5 MEQ/L (3.7-5.4); SAMPLE HEMOLYSIS CHECK 0; SAMPLE ICTERIC CHECK 0; SAMPLE LIPEMIA CHECK 0; SODIUM 128 MEQ/L (136-147); UREA NITROGEN (BUN) 82 mg/dL (9-23)
[2016-11-28 15:37] VITALS: BP 116/71
[2016-11-28 21:33] VITALS: BP 94/64
[2016-11-29] VITALS (7 sets, daily range): BP systolic 99–114; BP diastolic 56–70
[2016-11-29 07:01] LABS: HEMATOCRIT 29.8 % (38.0-50.0); MCH 29.8 PG (29.0-34.0); MCHC 32.2 G/DL (30.0-36.0); MCV 92.5 FL (86-99); MEAN PLAT.VOLUME 10.3 uM^3 (9.0-12.4); PLATELET COUNT 275 K/uL (156-360); RBC DIS.WIDTH-CV 15.9 % (11.8-14.6); RBC DIS.WIDTH-SD 54.4 % (39-53); RED BLOOD COUNT 3.22 M/uL (4.00-5.50); WHITE BLOOD COUNT 12.6 K/uL (4.1-10.2)
[2016-11-29 07:16] LABS: INTER. NORMALIZED RATIO 2.9; PROTHROMBIN TIME 30.5 (9.2-11.2)
[2016-11-29 08:07] LABS: ANION GAP 5 MEQ/L (2-14); CHLORIDE 93 MEQ/L (99-109); GFR ESTIMATE (CALCULATED) 34 mL/min/; POTASSIUM 4.8 MEQ/L (3.7-5.4); SAMPLE HEMOLYSIS CHECK 0; SAMPLE ICTERIC CHECK 0; SAMPLE LIPEMIA CHECK 0; SODIUM 131 MEQ/L (136-147); UREA NITROGEN (BUN) 80 mg/dL (9-23)
[2016-11-29 08:08] LABS: GLUCOSE 98 mg/dL (70-99)
[2016-11-30 04:45] VITALS: BP 110/72
[2016-11-30 05:30] LABS: INTER. NORMALIZED RATIO 2.8
[2016-11-30 05:46] LABS: ANION GAP 5 MEQ/L (2-14); CHLORIDE 92 MEQ/L (99-109); GFR ESTIMATE (CALCULATED) 32 mL/min/; GLUCOSE 105 mg/dL (70-99); POTASSIUM 4.9 MEQ/L (3.7-5.4); SAMPLE HEMOLYSIS CHECK 0; SAMPLE ICTERIC CHECK 0; SAMPLE LIPEMIA CHECK 0; SODIUM 130 MEQ/L (136-147); UREA NITROGEN (BUN) 81 mg/dL (9-23)
[2016-11-30 09:00] VITALS: BP 111/59
[2016-11-30 11:21] VITALS: BP 114/65
[2016-11-30 15:06] VITALS: BP 11/65; BP 111/65
[2016-11-30 19:00] VITALS: BP 105/59
[2016-12-01 00:22] VITALS: BP 117/73
[2016-12-01 00:31] VITALS: BP 112/68
[2016-12-01 04:48] VITALS: BP 106/65
[2016-12-01 06:45] LABS: ANION GAP 7 MEQ/L (2-14); CHLORIDE 94 MEQ/L (99-109); GFR ESTIMATE (CALCULATED) 29 mL/min/; GLUCOSE 87 mg/dL (70-99); POTASSIUM 5.3 MEQ/L (3.7-5.4); SAMPLE HEMOLYSIS CHECK 0; SAMPLE ICTERIC CHECK 0; SAMPLE LIPEMIA CHECK 0; SODIUM 134 MEQ/L (136-147); UREA NITROGEN (BUN) 89 mg/dL (9-23)
[2016-12-01 07:24] LABS: INTER. NORMALIZED RATIO 3.4; PROTHROMBIN TIME 35.8 (9.2-11.2)
[2016-12-01 08:55] VITALS: BP 107/62
[2016-12-01 12:00] VITALS: BP 117/60
[2016-12-01 12:16] LABS: BASE EXCESS 7.1 mEq/L (-3 to +3); CARBOXY HGB 3.4 % (0-5); METHEMOGLOBIN 1.8 % (0-1.5); PCO2 68 mm Hg (35-45); pH 7.32 (7.35-7.45)
[2016-12-01 12:17] LABS: COMMENTS - BLOOD GASES NAC+; DEVICE NC; O2 FLOW 5 L/MIN; PO2 53 mm Hg (80-100); SITE RR; TOTAL RESP RATE 16 resp/min
[2016-12-01 20:20] VITALS: BP 113/64
[2016-12-02 00:20] VITALS: BP 124/59
[2016-12-02 04:33] VITALS: BP 120/76
[2016-12-02 05:23] LABS: CHLORIDE 95 mEq/L (99-109); POTASSIUM 5.3 mEq/L (3.7-5.4); SODIUM 137 mEq/L (136-147)
[2016-12-02 05:24] LABS: GLUCOSE 89 mg/dL (70-99)
[2016-12-02 05:26] LABS: ANION GAP 11 MEQ/L (2-14)
[2016-12-02 05:28] LABS: GFR ESTIMATE (CALCULATED) 23 mL/min/
[2016-12-02 05:29] LABS: UREA NITROGEN (BUN) 100 mg/dL (9-23)
[2016-12-02 05:36] LABS: INTER. NORMALIZED RATIO 4.8; PROTHROMBIN TIME 50.9 (9.2-11.2)
[2016-12-02 07:00] VITALS: BP 112/58
[2016-12-02 12:15] VITALS: BP 107/61
[2016-12-02 15:36] VITALS: BP 107/60
[2016-12-03 00:10] VITALS: BP 108/55
[2016-12-03 04:39] VITALS: BP 108/55
[2016-12-03 08:03] LABS: INTER. NORMALIZED RATIO 7.7; PROTHROMBIN TIME 83.6 (9.2-11.2)
== END 2016-12-03 15:40 | DRG 291 ==
LOC: EME 11:42 → 4EAST 21:41 → 5SOUTH 21:41 → EDOF 21:41 → 5SOUTH 23:39 → 4EAST 11-21 15:36 → 5EAST 12-02 12:11
PROVIDERS: Emergency Medicine; Hospitalist; Internal Medicine; Internal Medicine Nephrology; Nurse Practitioner Adult Health
PROC: 5A09357 Assistance with Respiratory Ventilation, Less than 24 Consecutive Hours, Continuous Positive Airway Pressure (ICD-10-PCS; principal; 2016-11-24)
DX: I13.0 Hypertensive heart and chronic kidney disease with heart failure and stage 1 through stage 4 chronic kidney disease, or unspecified chronic kidney disease (principal); I50.23 Acute on chronic systolic (congestive) heart failure; J96.01 Acute respiratory failure with hypoxia; N17.9 Acute kidney failure, unspecified; E87.1 Hypo-osmolality and hyponatremia; R79.1 Abnormal coagulation profile; E87.5 Hyperkalemia; E87.2 Acidosis; G93.41 Metabolic encephalopathy; M79.89 Other specified soft tissue disorders; Z66 Do not resuscitate; I95.9 Hypotension, unspecified; J44.0 Chronic obstructive pulmonary disease with (acute) lower respiratory infection; J20.9 Acute bronchitis, unspecified; J90 Pleural effusion, not elsewhere classified; I48.2 Chronic atrial fibrillation; N18.3 Chronic kidney disease, stage 3 (moderate); D63.1 Anemia in chronic kidney disease; I27.2 Other secondary pulmonary hypertension; I42.8 Other cardiomyopathies; K74.60 Unspecified cirrhosis of liver; I25.10 Atherosclerotic heart disease of native coronary artery without angina pectoris; Z79.01 Long term (current) use of anticoagulants; Z95.2 Presence of prosthetic heart valve; Z95.0 Presence of cardiac pacemaker; Z85.038 Personal history of other malignant neoplasm of large intestine; Z88.2 Allergy status to sulfonamides
CPT/HCPCS: 36415; 36600; 71010; 71020; 74000; 80048; 80048 91; 80053; 80069; 80162; 81003; 82803; 83735; 83880; 84484; 85025; 85027; 85610; 85730; 93005; 93970; 93971; 94640; 94640 76; 94660; 94760; 94799; 97530 GO; 97530 GP; 99202; 99281; 99285; J0692; J1940; J2270; J2405; J2920; J2930; J7050; P9047